=== PATIENT | female | born 1960 | race Caucasian/White ===

== ENCOUNTER 2016-11-13 14:49 | Emergency (ER) | payer OTHER ==
[~2016-11-13] VITALS: Ht 167.6 cm; Wt 107.5 kg
[~2016-11-13 14:49] MED LIST: ADVIN25/60 INH; ALBUAER19 INH; ASCO500T16 PO; CETI10TA99 PO; CHOL2000 PO; CITA10TA8 PO; FLUT0.0529 NAE; MULTTAB58 PO; RTL20 PO
[2016-11-13 14:55] VITALS: BP 160/112; PULSE 102; TEMP 36.8; O2SAT 95; Ht 167.6 cm; Wt 107.5 kg
[2016-11-13] MEDS ORDERED: MONT1TAB3 PO ×2 (15:18→20:55)
[2016-11-13] MEDS ORDERED: ADVIN25/60 INH (15:18)
--- NOTE | 2016-11-13 15:32 | EMERGENCY ROOM VISIT NOTE ---
History First contact with patient: 15:02 Chief Complaint: RESPIRATORY PROBLEMS Stated Complaint: BREATHING Nursing Triage Summary: Patient reports having difficulty breathing with cough "I coughed so hard I hurt m air, its my asthma its because my docotr couldnt fill my singulair and my advair". History of Present Illness The patient is a 55 year old female who presents to the Emergency Room requesting a refill of her prescription Singulair and Advair. The patient reports a history of asthma that has recently been flaring because of the change in weather. She reports that her PCP, Dr. Carlson, dismissed her from his practice. Until she can find another family doctor, she wants to "nip this in the bud before he gets worse". The patient denies any recent sinus congestion, productive cough or fever. She also denies any chest pain. Review of Systems 10 system review was performed and was negative except for pertinent positives and negatives as indicated in history of present illness Past Medical/Surgical History Medical Problems: (1) Asthma (2) Degenerative disc disease, cervical Social History Smoking Status: Former Smoker Alcohol Use: none Marital Status: Housing Status: lives with family Occupation Status: employed Current/Historical Medications Scheduled Ascorbic Acid (Ascorbic Acid), Unknown Dose PO DAILY Cetirizine Hcl (Zyrtec Allergy), 10 MG PO DAILY Cholecalciferol (Vitamin D3), 2,000 UNITS PO DAILY Citalopram Hydrobromide (Celexa), 10 MG PO DAILY Fluticasone Prop/Salmeterol (Advair Diskus 250/50 60 Dose), 1 PUFFS INH BID Fluticasone Propionate (Nasal) (Flonase), 1-2 SPRAYS [place] DAILY Methylphenidate (Ritalin), 20 MG PO BID Montelukast Sodium (Singulair), 10 MG PO DAILY Montelukast Sodium (Singulair), 1 TAB PO DAILY Multiple Vitamin (Multivitamin), 1 TAB PO DAILY [place]-3 Fatty Acids (Fish Oil), 1 CAPSULE PO DAILY Trazodone HCl (Trazodone HCl), 50 MG PO HS Scheduled PRN Albuterol Inhaler (Ventolin Inhaler), 1-2 PUFFS INH Q4-6HRS PRN for PRN Fluticasone Prop/Salmeterol (Advair Diskus 250/50 60 Dose), 1 PUFFS INH BID PRN for Shortness of Breath Allergies Coded Allergies: No Known Allergies (Unverified , 10/06/16) Physical Exam Vital Signs Date Time Temp Pulse Resp B/P Pulse Ox O2 Delivery O2 Flow Rate FiO2 11/13/16 14:55 36.8 102 18 160/112 95 Room Air Physical Exam CONSTITUTIONAL: Healthy and well nourished. Alert and oriented X 3 with positive affect. HEENT: Normocephalic, atraumatic. Pupils equal, round and reactive. NECK: Full active range of motion without discomfort. No JVD or carotid bruits. RESPIRATORY: Clear to auscultation bilaterally with no wheezing, crackles, rhonchi or stridor. CARDIOVASCULAR: Regular rate and rhythm with no murmurs, rubs or gallops. INTEGUMENTARY: No rash or other significant dermatologic conditions noted. NEUROLOGIC: No focal neurologic deficits noted. Medical Decision & Procedures ED Course Patient history and physical exam were performed. Nurse's notes were reviewed. Vital signs were reviewed and were normal. I did review the patient's medication history, showing that she has not had her Advair filled since last summer and her most recent Singulair prescription refill was in July. The patient was given a month's supply of Singulair 250 mg daily, and Advair 250 mg. She was encouraged to find a family doctor for further management, and return to the emergency department as needed for any worsening asthma symptoms or other concerns. The patient was happy with plan of care, and voiced understanding of all discharge instructions. Impression Primary Impression: Asthma Additional Impression: Prescription refill Departure Information Dispostion Home / Self-Care Prescriptions Montelukast Sodium (SINGULAIR) 10 Mg Tab 1 TAB PO DAILY for 30 Days, #30 TAB 5 Refills Prov: Philip Persaud PA 11/13/16 Fluticasone Prop/Salmeterol (Advair Diskus 250/50 60 Dose) 1 Ea Aerp 1 PUFFS INH BID for 30 Days, #1 INHALER 5 Refills Prov: Philip Persaud PA 11/13/16 Referrals No Doctor, Assigned (PCP) Forms HOME CARE DOCUMENTATION FORM, IMPORTANT VISIT INFORMATION Patient Instructions [facility] Additional Instructions Return to the emergency department for any worsening asthma symptoms Problem Qualifiers Primary Impression: Asthma Asthma severity: moderate persistent Asthma complication type: uncomplicated Qualified Codes: J45.40 - Moderate persistent asthma, uncomplicated
[2016-11-13] MEDS ORDERED: ASCO500C3 PO (15:44)
[2016-11-13] MEDS ORDERED: RTL10 PO (15:44)
[2016-11-13] MEDS ORDERED: METH20TA66 PO (15:44)
[2016-11-13] MEDS ORDERED: METH10TA4 PO (15:44)
[2016-11-13] MEDS ORDERED: Proair HFA INH (15:44)
[2016-11-13] MEDS ORDERED: DSY100 PO (20:55)
[2016-11-13] MEDS ORDERED: OMEGCAP2 PO (20:55)
== END 2016-11-13 15:40 | disposition home or self-care (01) ==
LOC: C.EDB 14:50 → C.EDC 15:40
DX: J45.40 Moderate persistent asthma, uncomplicated (principal); Z79.899 Other long term (current) drug therapy; Z87.891 Personal history of nicotine dependence

== ENCOUNTER 2017-04-04 16:52 | Emergency (ER) | payer OTHER ==
[~2017-04-04] VITALS: Ht 167.6 cm; Wt 109.0 kg
[~2017-04-04 16:52] MED LIST changes: -ALBUAER19 INH; +ASCO500C3 PO; -ASCO500T16 PO; -CETI10TA99 PO; +DSY100 PO; -FLUT0.0529 NAE; +METH10TA4 PO; +METH20TA66 PO; +MONT1TAB3 PO; +OMEGCAP2 PO; +Proair HFA INH; +RTL10 PO; -RTL20 PO
[2017-04-04 17:06] VITALS: BP 157/115; PULSE 108; TEMP 37.1; Ht 167.6 cm; Wt 109.0 kg
[2017-04-04 17:08] VITALS: O2SAT 96
== END 2017-04-04 17:48 | disposition left against medical advice (07) ==
LOC: C.EDB 16:53
DX: J45.909 Unspecified asthma, uncomplicated (principal); R06.9 Unspecified abnormalities of breathing

== ENCOUNTER 2020-10-22 11:22 | Inpatient (IN) ==
[2020-10-22] MEDS ORDERED: ALBUT/IPRATROP 3MG/0.5MG NEB 3 ML VIAL INH STA (12:12)
[2020-10-22] MEDS ORDERED: methylPREDNISolone 125 MG/2 ML VIAL IV STA (12:12)
[2020-10-22] MEDS ORDERED: ONDANSETRON INJ 2 MG/ML 2 ML VIAL IV STA (12:12)
[2020-10-22] MEDS ORDERED: SODIUM CHLORIDE 0.9% 1000ML 1,000 ML IV SCH (12:15)
--- NOTE | 2020-10-22 12:18 | Emergency Department Note ---
History of Present Illness General Chief complaint: Nausea Stated complaint: NAUSEA,DIARRHEA,SOB Time Seen by Provider: 10/22/20 11:58 Source: patient History of Present Illness Provider complaint: Shortness of breath Onset (ago): week(s) Location: chest Pain Consistency: + constant Maximum Pain Intensity: 7 Quality: + other (Shortness of breath and wheezing) Relieved By: + none Associated symptoms: + chest pain (Rib pain when she coughs), + cough, + malaise, + nausea/vomiting, + shortness of breath and + other (Body aches and diarrhea); no fever/chills This is a 59-year-old female who presents with shortness of breath for the past week. She does have a history of asthma. She states that she feels she needs fluids, nausea medicine and a nebulizer. She has been sick for about a week. She has had a cough which is nonproductive. She complains of diffuse body aches and diarrhea. She has had no loss of taste or smell, fever, chills or known e xposure to COVID-19. She works from home and does not go out except for essentials. She denies any chest pain other than soreness in her ribs when she coughs only. She has been nauseous all week and not been able to drink very much. She has not vomited. She states she feels dehydrated. He denies any history of DVT or PE or any hormone replacement or leg swelling or pain. She does smoke but states she is trying to quit. Home Medications Medication Instructions Recorded Confirmed Type albuterol sulfate [ProAir HFA] 2 puff INHALATION Q6H PRN 11/05/18 10/22/20 History ascorbic acid (vitamin C) [Vitamin 500 mg PO QAM 11/05/18 10/22/20 History C] cholecalciferol (vitamin D3) 2,000 unit PO QAM 11/05/18 10/22/20 History dexmethylphenidate [Focalin] 10 mg PO QID 11/05/18 10/22/20 History fluticasone propion-salmeterol 1 inh INHALATION Q12H 11/05/18 10/22/20 History [Advair Diskus] montelukast [Singulair] 10 mg PO PM 11/05/18 10/22/20 History multivitamin 1 tab PO QAM 11/05/18 10/22/20 History zolpidem 10 mg PO HS PRN 04/28/20 10/22/20 History alprazolam 0.5 mg PO TID PRN 10/22/20 10/22/20 History magnesium oxide 400 mg PO QAM 10/22/20 10/22/20 History omega-3 fatty acids [[place] 3] 1,000 mg PO DAILY 10/22/20 10/22/20 History pantoprazole [Protonix] 40 mg PO DAILY 10/22/20 10/22/20 History umeclidinium [Incruse Ellipta] 1 inh INHALATION QAM 10/22/20 10/22/20 History Allergies Allergy/AdvReac Type Severity Reaction Status Date / Time hydrocodone [From Vicodin] AdvReac Intermediate Gastrointestinal Verified 12:29 Upset ibuprofen AdvReac Intermediate Gastrointestinal Verified 10/22/20 12:29 Upset tramadol AdvReac Intermediate Gastrointestinal Verified 10/22/20 12:29 Upset Past Med/Surg History Medical History ADHD Anxiety Asthma Cervical radiculopathy due to degenerative joint disease ofspine HLD (hyperlipidemia) Morbid obesity Tobacco use Surgical History Hx of tonsillectomy Family History Other Cancer Heart disease Stroke Social History Smoking Status: Current every day smoker Tobacco Type: Cigarettes Cigarettes Per Day: 8 per day; Second Hand Exposure: No; Do You Dip or Chew Tobacco: No; Tobacco Cessation Education Requested by Patient: No Hx Alcohol Use: Yes Hx Substance Use: No Preferred Language: Turkish Communication Ability: Effective Bid Writer Required: No Beliefs That Will Affect Care: None Current Living Situation: Alone Current Living Situation Comment: with pet Other Information That Helps Us Care for You: No Feels Safe at Home: Yes Assistive Devices: Nebulizer Review of Systems See HPI for pertinent positives & negatives. and A total of 10 systems reviewed and were otherwise negative Physical Exam Vital Signs Vital Signs - 24 hr 10/22/20 11:23 10/22/20 12:38 10/22/20 12:43 Temperature 36.2 C L Temperature Source Temporal Artery Scan Pulse Rate 110 H Pulse Rate [Finger] 105 H Pulse Rate from SpO2 Sensor Respiratory Rate 20 18 Respiratory Effort / Characteristics Spontaneous Respiratory Depth Normal Blood Pressure 148/99 H Blood Pressure Mean 115 Pulse Oximetry 92 90 92 Oxygen Delivery Method Room Air Room Air Room Air Oxygen Flow Rate Sepsis Recent Fever Within 48 Hours No Sepsis New/Unexplained Change in Mental Status N/A Sepsis Action Taken by Nursing No Action Required Oxygen Flow Rate - Titration Pulse Oximetry Post Tiitration 10/22/20 12:45 10/22/20 13:00 10/22/20 13:31 Temperature Temperature Source Pulse Rate 103 H 100 H 102 H Pulse Rate [Finger] Pulse Rate from SpO2 Sensor 104 H 100 H 103 H Respiratory Rate 20 18 25 H Respiratory Effort / Characteristics Respiratory Depth Blood Pressure 136/92 139/82 125/88 Blood Pressure Mean 97 103 120 Pulse Oximetry 99 100 92 Oxygen Delivery Method Nebulizer Nebulizer Room Air Oxygen Flow Rate Sepsis Recent Fever Within 48 Hours Sepsis New/Unexplained Change in Mental Status Sepsis Action Taken by Nursing Oxygen Flow Rate - Titration Pulse Oximetry Post Tiitration 10/22/20 14:51 10/22/20 15:00 10/22/20 15:03 Temperature Temperature Source Pulse Rate 101 H 101 H Pulse Rate [Finger] Pulse Rate from SpO2 Sensor 101 H 101 H Respiratory Rate 24 3 L Respiratory Effort / Characteristics Respiratory Depth Blood Pressure 169/116 H Blood Pressure Mean 122 Pulse Oximetry 91 86 L 86 L Oxygen Delivery Method Room Air Nasal Cannula Room Air Oxygen Flow Rate 0 Sepsis Recent Fever Within 48 Hours Sepsis New/Unexplained Change in Mental Status Sepsis Action Taken by Nursing Oxygen Flow Rate - Titration 2 Pulse Oximetry Post Tiitration 91 10/22/20 15:14 10/22/20 15:30 Temperature Temperature Source Pulse Rate 102 H 100 H Pulse Rate [Finger] Pulse Rate from SpO2 Sensor 102 H 100 H Respiratory Rate 16 26 H Respiratory Effort / Characteristics Respiratory Depth Blood Pressure 120/89 135/79 Blood Pressure Mean 102 98 Pulse Oximetry 90 91 Oxygen Delivery Method Nasal Cannula Oxygen Flow Rate 2 Sepsis Recent Fever Within 48 Hours Sepsis New/Unexplained Change in Mental Status Sepsis Action Taken by Nursing Oxygen Flow Rate - Titration Pulse Oximetry Post Tiitration Constitutional: Vital signs reviewed. Eyes: Pupils are equal round reactive to light. Conjunctiva are noninjected. ENT: Pharynx is clear without erythema or exudate. Mucous membranes are very dry. Neck supple without meningeal signs. Respiratory: Diminished air entry bilaterally. Breath sounds are equal bilaterally. Cardiovascular: Tachycardic. Heart rate 110. Regular rhythm. GI: Soft, nondistended and nontender. Bowel sounds are present. Musculoskeletal: No peripheral edema. No lower extremity tenderness. Integumentary: No cyanosis. or jaundice. Neurological: The patient is awake and alert. No focal deficits. Psychiatric: Slightly anxious appearing. Course Administered Medications Remdesivir 200 mg/ Sodium (Chloride) 250 mls @ 125 mls/hr IV ONE STA; Protocol Stop: 10/22/20 17:34 Last Admin: 10/22/20 17:23 Dose: 125 mls/hr Documented by: [id number] Sodium Chloride (Sodium Chloride 0.9% 10ml Flush) 30 ml IV Q24H SPIKE Stop: 10/26/20 12:01 Last Admin: 10/22/20 17:24 Dose: 30 ml Documented by: [id number] Discontinued Medications Albuterol (Albut/Ipratrop 3mg/0.5mg Neb 3 Ml Vial) 12 ml INH ONE STA Stop: 10/22/20 12:13 Last Admin: 10/22/20 12:36 Dose: 12 ml Documented by: [id number] Sodium Chloride (Nss 1000ml) 1,000 mls @ 999 mls/hr IV .Q1H1M SPIKE Stop: 10/22/20 13:15 Last Infusion: 10/22/20 13:40 Dose: 0 mls/hr Documented by: [id number] Admin: 10/22/20 12:54 Dose: 999 mls/hr Documented by: [id number] Ioversol (Optiray 320 125ml) 120 ml IV ONCE ONE Stop: 10/22/20 13:53 Last Admin: 10/22/20 13:53 Dose: 120 ml Documented by: [id number] Methylprednisolone (Methylprednisolone 125 Mg/2 Ml Vial) 125 mg IV NOW STA Stop: 10/22/20 12:13 Last Admin: 10/22/20 12:53 Dose: 125 mg Documented by: [id number] Ondansetron HCl (Ondansetron Inj 2 Mg/Ml 2 Ml Vial) 4 mg IV NOW STA Stop: 10/22/20 12:13 Last Admin: 10/22/20 12:53 Dose: 4 mg Documented by: [id number] Medical Decision Making Differential Diagnosis Asthma exacerbation, COVID-19, pneumonia, influenza, PE Medical Records Attestation: I reviewed the patient's medical records. I did perform a limited focused review of portions of the patient's old chart on the electronic medical record. The patient was seen here for an asthma exacerbation in the summer of last year. Home Medications Current Medication List: was personally reviewed by me Laboratory Data Attestation: I reviewed the patient's lab results. Result diagrams: 10/22/20 12:55 10/22/20 12:55 Lab Results 10/22/20 10/22/20 10/22/20 Range/Units 12:55 12:55 12:55 WBC 5.89 (4.8-10.8) K/uL RBC 5.37 (4.2-5.4) M/uL Hgb 15.6 (12.0-16.0) g/dL Hct 46.4 (37-47) % MCV 86.4 (80-100) fL MCH 29.1 (25-34) pg MCHC 33.6 (32-36) g/dL RDW Std Deviation 45.3 (36.4-46.3) fL RDW Coeff of [place] 14.4 (11.5-14.5) % Plt Count 201 (130-400) K/uL MPV 9.4 (7.4-10.4) fL Immature Gran % (Auto) 0.5 % Neut % (Auto) 65.5 % Lymph % (Auto) 25.3 % [place] % (Auto) 8.5 % Eos % (Auto) 0.0 % Baso % (Auto) 0.2 % Neut # (Auto) 3.86 (1.4-6.5) K/uL Lymph # (Auto) 1.49 (1.2-3.4) K/uL [place] # (Auto) 0.50 (0.11-0.59) K/uL Eos # (Auto) 0.00 (0-0.5) K/uL Baso # (Auto) 0.01 (0-0.2) K/uL Immature Gran # (Auto) 0.03 H (0.00-0.02) K/uL PT 10.8 (9.0-12.0) Seconds INR 1.0 (0.9-1.1) APTT 31.5 H (21.0-31.0) Seconds PTT Ratio 1.1 D-Dimer 1740 H* (0-500) ug/L FEU Sodium 132 L (136-145) mmol/L Potassium 4.0 (3.5-5.1) mmol/L Chloride 101 (98-107) mmol/L Carbon Dioxide 26 (21-32) mmol/L Anion Gap 5.0 (3-11) BUN 11 (7-18) mg/dl Creatinine 0.77 (0.6-1.2) mg/dl Est Cr Clr Drug Dosing 101.0 ml/min Est GFR ( Amer) 98.0 Est GFR (Non-Af Amer) 84.5 BUN/Creatinine Ratio 14.8 (10-20) Glucose 112 H (70-99) mg/dl Calcium 8.1 L (8.5-10.1) mg/dl Magnesium 2.3 (1.8-2.4) mg/dl Total Bilirubin 0.7 (0.2-1) mg/dl AST 95 H (15-37) U/L ALT 82 H (12-78) U/L Alkaline Phosphatase 107 (45-117) U/L Troponin I 0.064 H* (0-0.045) ng/ml C-Reactive Protein 4.03 H (0-0.29) mg/dl Total Protein 7.1 (6.4-8.2) gm/dl Albumin 2.9 L (3.4-5.0) gm/dl Globulin 4.2 H (2.5-4.0) gm/dl Albumin/Globulin Ratio 0.7 L (0.9-2) Procalcitonin (0-0.5) ng/ml COVID-19 Eval Order SARS-CoV-2 (PCR) (Negative) Nasopharyn COVID-19 PCR Influenza Type A (PCR) Influ A Molecular Assay (Negative) Influenza Type B (PCR) Influ B Molecular Assay (Negative) RSV (RT-PCR) (Neg) 10/22/20 10/22/20 10/22/20 Range/Units 12:55 12:55 12:55 WBC (4.8-10.8) K/uL RBC (4.2-5.4) M/uL Hgb (12.0-16.0) g/dL Hct (37-47) % MCV (80-100) fL MCH (25-34) pg MCHC (32-36) g/dL RDW Std Deviation (36.4-46.3) fL RDW Coeff of [place] (11.5-14.5) % Plt Count (130-400) K/uL MPV (7.4-10.4) fL Immature Gran % (Auto) % Neut % (Auto) % Lymph % (Auto) % [place] % (Auto) % Eos % (Auto) % Baso % (Auto) % Neut # (Auto) (1.4-6.5) K/uL Lymph # (Auto) (1.2-3.4) K/uL [place] # (Auto) (0.11-0.59) K/uL Eos # (Auto) (0-0.5) K/uL Baso # (Auto) (0-0.2) K/uL Immature Gran # (Auto) (0.00-0.02) K/uL PT (9.0-12.0) Seconds INR (0.9-1.1) APTT (21.0-31.0) Seconds PTT Ratio D-Dimer (0-500) ug/L FEU Sodium (136-145) mmol/L Potassium (3.5-5.1) mmol/L Chloride (98-107) mmol/L Carbon Dioxide (21-32) mmol/L Anion Gap (3-11) BUN (7-18) mg/dl Creatinine (0.6-1.2) mg/dl Est Cr Clr Drug Dosing ml/min Est GFR ( Amer) Est GFR (Non-Af Amer) BUN/Creatinine Ratio (10-20) Glucose (70-99) mg/dl Calcium (8.5-10.1) mg/dl Magnesium (1.8-2.4) mg/dl Total Bilirubin (0.2-1) mg/dl AST (15-37) U/L ALT (12-78) U/L Alkaline Phosphatase (45-117) U/L Troponin I (0-0.045) ng/ml C-Reactive Protein (0-0.29) mg/dl Total Protein (6.4-8.2) gm/dl Albumin (3.4-5.0) gm/dl Globulin (2.5-4.0) gm/dl Albumin/Globulin Ratio (0.9-2) Procalcitonin (0-0.5) ng/ml COVID-19 Eval Order [facility]Rsv at [facility] SARS-CoV-2 (PCR) (Negative) Nasopharyn COVID-19 PCR Cancelled Influenza Type A (PCR) Cancelled Influ A Molecular Assay Negative (Negative) Influenza Type B (PCR) Cancelled Influ B Molecular Assay Negative (Negative) RSV (RT-PCR) (Neg) 10/22/20 10/22/20 Range/Units 12:55 12:56 WBC (4.8-10.8) K/uL RBC (4.2-5.4) M/uL Hgb (12.0-16.0) g/dL Hct (37-47) % MCV (80-100) fL MCH (25-34) pg MCHC (32-36) g/dL RDW Std Deviation (36.4-46.3) fL RDW Coeff of [place] (11.5-14.5) % Plt Count (130-400) K/uL MPV (7.4-10.4) fL Immature Gran % (Auto) % Neut % (Auto) % Lymph % (Auto) % [place] % (Auto) % Eos % (Auto) % Baso % (Auto) % Neut # (Auto) (1.4-6.5) K/uL Lymph # (Auto) (1.2-3.4) K/uL [place] # (Auto) (0.11-0.59) K/uL Eos # (Auto) (0-0.5) K/uL Baso # (Auto) (0-0.2) K/uL Immature Gran # (Auto) (0.00-0.02) K/uL PT (9.0-12.0) Seconds INR (0.9-1.1) APTT (21.0-31.0) Seconds PTT Ratio D-Dimer (0-500) ug/L FEU Sodium (136-145) mmol/L Potassium (3.5-5.1) mmol/L Chloride (98-107) mmol/L Carbon Dioxide (21-32) mmol/L Anion Gap (3-11) BUN (7-18) mg/dl Creatinine (0.6-1.2) mg/dl Est Cr Clr Drug Dosing ml/min Est GFR ( Amer) Est GFR (Non-Af Amer) BUN/Creatinine Ratio (10-20) Glucose (70-99) mg/dl Calcium (8.5-10.1) mg/dl Magnesium (1.8-2.4) mg/dl Total Bilirubin (0.2-1) mg/dl AST (15-37) U/L ALT (12-78) U/L Alkaline Phosphatase (45-117) U/L Troponin I (0-0.045) ng/ml C-Reactive Protein (0-0.29) mg/dl Total Protein (6.4-8.2) gm/dl Albumin (3.4-5.0) gm/dl Globulin (2.5-4.0) gm/dl Albumin/Globulin Ratio (0.9-2) Procalcitonin 0.08 (0-0.5) ng/ml COVID-19 Eval Order SARS-CoV-2 (PCR) POSITIVE A* (Negative) Nasopharyn COVID-19 PCR Influenza Type A (PCR) Negative Influ A Molecular Assay (Negative) Influenza Type B (PCR) Negative Influ B Molecular Assay (Negative) RSV (RT-PCR) Negative (Neg) Imaging Data Radiologist's Impression: XR chest 1V portable CLINICAL HISTORY: Dyspnea COMPARISON STUDY: 12/30/2018 FINDINGS: The heart is normal in size. There are suspected subtle groundglass opacities within the left midlung zone. Evaluation is difficult due to the patient's large body habitus. Diagnostic considerations include radiographic artifact, asymmetric edema, or pneumonia. There are no large pleural effusions.[ IMPRESSION: 1. Somewhat difficult study to interpret due to the patient's large body habitus 2. Suspected subtle groundglass opacities in the left midlung zone. Diagnostic considerations include radiographic artifact, asymmetric edema, or pneumonia. Clinical and radiographic follow-up recommended ACT 112: Negative or not required by law. Electronically signed by: Sam Ac M.D. 10/22/2020 1:03 PM Dictated: 10/22/20 1301 Transcribed: 10/22/[address] ANGIOGRAM OF THE CHEST CLINICAL HISTORY: Shortness of breath. Possible pulmonary embolism. POSSIBLE ABNORMAL CHEST X-RAY. COMPARISON STUDY: Chest x-ray dated 10/22/2020 TECHNIQUE: Following the IV administration of 120 mL of Optiray-320, CT ang iogram of the thorax was performed from the thoracic inlet to the lung bases utilizing the pulmonary embolus protocol. Images are reviewed in the axial, sagittal, and coronal planes. IV contrast was administered without complication. MIP imaging was performed. A dose lowering technique was utilized adhering to the principles of ALARA. CT DOSE: 849.73 mGy.cm FINDINGS: There is hepatic steatosis. There is a rim calcified 24 mm cystic splenic lesion. There is mild hilar and mediastinal lymphadenopathy likely reactive. The ascending thoracic aorta measures 36 mm. There are coronary artery c alcifications. There were no pulmonary artery filling defects to indicate acute pulmonary embolism. There is trace pleural fluid There are multifocal groundglass pulmonary opacities suspicious for a multifocal pneumonia. The findings are consistent with although not specific for Covid 19 pneumonia. IMPRESSION: 1. No evidence of acute pulmonary embolism 2. Multifocal groundglass pulmonary opacities consistent with a multifocal pneumonia. 3. Hepatic steatosis. 4. Mild adenopathy likely reactive ACT 112: Negative or not required by law. Electronically signed by: Sam Ac M.D. 10/22/2020 2:43 PM Dictated: 10/22/20 1440 Transcribed: 10/22/20 1440 ECG Data Attestation: I personally reviewed and interpreted this ECG as follows: Indication: + SOB/dyspnea Rate (beats per minute): 103 Rhythm: + sinus tachycardia ECG [place]: + Normal ECG ST segments: no ST elevation ECG Findings: no PVCs MDM Narrative I did evaluate the patient as noted above. The patient is an asthmatic who is presenting with shortness of breath and body aches with diarrhea. I was concerned about COVID-19. She is placed in respiratory isolation. I did treat her with an hour-long nebulizer. IV access was established. She was given Solu-Medrol IV. I did place an order for continuous cardiac monitoring. The monitor showed sinus tachycardia at a rate of 102 bpm. I did order and personally review the patient's 12-lead EKG as described above. She is tachycardic without any acute ischemia. I did order and personally reviewed the images of the patient's chest x-ray as described above. X-ray is concerning for groundglass opacities. I did order and review the patient's blood work as noted in the electronic medical record. CBC is unremarkable without any leukocytosis or anemia. Electrolytes demonstrate a mild hyponatremia with a sodium of 132. D-dimer significant elevated troponin is also slightly elevated. LFTs are bumped as well. After discussion with the patient, I did order a CT angiogram of the chest. I did review the images myself as well as the radiology report as described above. She does not have pulmonary emboli but she does have multifocal pneumonia consistent with COVID-19. Her COVID-19 test came back positive. Influenza tests are negative. I did discuss the test results with her. She will be hospitalized for further care and evaluation. I did discuss case with the hospitalist and assistant case manager. Impression & Plan Pneumonia due to 2019-nCoV, Elevated troponin, Acute asthma exacerbation, Abnormal LFTs Discharge Plan Visit Data Chief Complaint: Nausea Stated Complaint: NAUSEA,DIARRHEA,SOB ED Provider: Wade Millard Discharge Problem: Pneumonia due to 2019-nCoV, Elevated troponin, Acute asthma exacerbation, Abnormal LFTs Patient Disposition: Admitted As Inpatient Discharge Instructions Interventions: ED Discharge Assessment Last Done: 10/22/20 16:10
--- NOTE | 2020-10-22 13:04 | XRay Report ---
XR chest 1V portable CLINICAL HISTORY: Dyspnea COMPARISON STUDY: 12/30/2018 FINDINGS: The heart is normal in size. There are suspected subtle groundglass opacities within the le ft midlung zone. Evaluation is difficult due to the patient's large body habitus. Diagnostic consider ations include radiographic artifact, asymmetric edema, or pneumonia. There are no large pleural effu sions.[ IMPRESSION: 1. Somewhat difficult study to interpret due to the patient's large body habitus 2. Suspected subtle groundglass opacities in the left midlung zone. Diagnostic considerations include radiographic artifact, asymmetric edema, or pneumonia. Clinical and radiographic follow-up recommend ed ACT 112: Negative or not required by law. Electronically signed by: Sam Ac M.D. 10/22/2020 1:03 PM
[2020-10-22 13:08] LABS: Basophils # (auto) 0.01 K/uL (0-0.2); Basophils % (auto) 0.2 %; Hematocrit (blood only) 46.4 % (37-47); Hemoglobin 15.6 g/dL (12.0-16.0); Immature Granulocytes # (auto) 0.03 K/uL (0.00-0.02); Immature Granulocytes % (auto) 0.5 %; Lymphocytes # (auto) 1.49 K/uL (1.2-3.4); Lymphocytes % (auto) 25.3 %; Mean Corpuscular Hemoglobin 29.1 pg (25-34); Mean Corpuscular Hgb Conc 33.6 g/dL (32-36); Mean Corpuscular Volume 86.4 fL (80-100); Mean Platelet Volume 9.4 fL (7.4-10.4); Monocytes % (auto) 8.5 %; Neutrophils # (auto) 3.86 K/uL (1.4-6.5); Neutrophils % (auto) 65.5 %; Platelet Count 201 K/uL (130-400); RDW Coefficient of Variation 14.4 % (11.5-14.5); RDW Standard Deviation 45.3 fL (36.4-46.3); Red Blood Count 5.37 M/uL (4.2-5.4); White Blood Count 5.89 K/uL (4.8-10.8)
[2020-10-22 13:25] LABS: Albumin Level 2.9 gm/dl (3.4-5.0); BUN Creatinine Ratio 14.8 (10-20); Calcium 8.1 mg/dl (8.5-10.1); Est GFR (Non-African American) 84.5; Magnesium 2.3 mg/dl (1.8-2.4)
[2020-10-22 13:31] LABS: Partial Thromboplastin Ratio 1.1; Partial Thromboplastin Time 31.5 Seconds (21.0-31.0); Prothrombin Time 10.8 Seconds (9.0-12.0)
[2020-10-22 13:32] LABS: Albumin Globulin Ratio 0.7 (0.9-2); Bilirubin,Total 0.7 mg/dl (0.2-1); C Reactive Protein 4.03 mg/dl (0-0.29); Globulin 4.2 gm/dl (2.5-4.0); Total Protein 7.1 gm/dl (6.4-8.2); Troponin I 0.064 ng/ml (0-0.045)
[2020-10-22 13:34] LABS: D Dimer 1740 ug/L FEU (0-500)
[2020-10-22 13:39] LABS: Influenza A virus by PCR Negative (Negative); Influenza B virus by PCR Negative (Negative)
[2020-10-22] MEDS ORDERED: OPTIRAY 320 125ml IV ONE (13:52)
[2020-10-22 14:30] LABS: Influenza A virus by PCR Negative (Neg); Influenza B virus by PCR Negative (Neg); RSV by PCR Negative (Neg)
[2020-10-22 14:38] LABS: SARS CoV2 RNA(COVID-19) InHosp POSITIVE (Negative)
--- NOTE | 2020-10-22 14:44 | CT Scan Report ---
CT ANGIOGRAM OF THE CHEST CLINICAL HISTORY: Shortness of breath. Possible pulmonary embolism. POSSIBLE ABNORMAL CHEST X-RAY. COMPARISON STUDY: Chest x-ray dated 10/22/2020 TECHNIQUE: Following the IV administration of 120 mL of Optiray-320, CT angiogram of the thorax was p erformed from the thoracic inlet to the lung bases utilizing the pulmonary embolus protocol. Images a re reviewed in the axial, sagittal, and coronal planes. IV contrast was administered without complica tion. MIP imaging was performed. A dose lowering technique was utilized adhering to the principles o f ALARA. CT DOSE: 849.73 mGy.cm FINDINGS: There is hepatic steatosis. There is a rim calcified 24 mm cystic splenic lesion. There is mild hilar and mediastinal lymphadenopathy likely reactive. The ascending thoracic aorta measures 36 mm. There are coronary artery calcifications. There were no pulmonary artery filling defects to indicate acute pulmonary embolism. There is trace pleural fluid There are multifocal groundglass pulmonary opacities suspicious for a multifocal pneumonia. The findi ngs are consistent with although not specific for Covid 19 pneumonia. IMPRESSION: 1. No evidence of acute pulmonary embolism 2. Multifocal groundglass pulmonary opacities consistent with a multifocal pneumonia. 3. Hepatic steatosis. 4. Mild adenopathy likely reactive ACT 112: Negative or not required by law. Electronically signed by: Sam Ac M.D. 10/22/2020 2:43 PM
[2020-10-22] MEDS ORDERED: REMDESIVIR 200 MG in SODIUM CHLORIDE 0.9% 210 ML IV STA (15:35)
--- NOTE | 2020-10-22 15:39 | History & Physical Report ---
Date of Service October 22, 2020 Assessment & Plan (1) Hypoxia: (2) Pneumonia due to COVID-19 virus: (3) Asthma: (4) Elevated troponin: (5) Tobacco use: (6) HLD (hyperlipidemia): (7) Anxiety: (8) ADHD: This is a 59-year-old female with PMH of asthma and HLD who presents with shortness of breath over the past few days and was found to have covid pneumonia. Covid pneumonia Hypoxia -Short of breath for the past 2 days with productive cough and pleuritic chest pain -Covid + on cepheid test. Negative flu A/B and RSV -Hypoxic at 86% in ED on room air. Now saturating at 90% on 2L NC -Chest CTA with multifocal ground glass pulmonary opacities consistent with a multifocal pneumonia. No evidence of acute pulmonary embolism -Covid isolation precautions, IV dexamethasone, IV Remdesivir (monitoring renal fxn and LFTs), albuterol inh Troponin elevation Mildly elevated at 0.064. EKG with sinus tachycardia @ 103 bpm. No acute ischemic changes. Atypical pleuritic CP with coughing Monitor on telemetry, trend troponin, will not pursue 2D echo while covid +. A1c and fasting lipid panel in AM Asthma Continue home albuterol, Advair, Incruse Ellipta, Singulair Tobacco use Counselled on importance of smoking cessation. Will offer nicotine patch ADHD Continue home Focalin QID DVT Ppx: SQ Lovenox Code status: FULL PCP: Katlyn Dispo: [facility] Plan to return home once medically stable. Patient seen in collaboration with Dr. Ann. Please see addendum. History of Present Illness Chief Complaint: Shortness of breath, pleuritic chest pain Primary Care Provider: Kip Potts MD This is a 59-year-old female with PMH of asthma and HLD who presents with shortness of breath over the past few days. Started to feel poorly about a week ago with headache and body aches, followed by nausea and diarrhea. Has been short of breath for the past 2 days with productive cough and pain in ribs when coughing. Denies any known Covid contacts. Takes inhalers as scheduled for history of asthma. Denies any fever, chills, lightheadedness, visual changes, chest pain, palpitations, vomiting, abdominal pain, dysuria or constipation. Has had poor appetite for the past few days. In ED, patient afebrile and hemodynamically stable. Became hypoxic in the high 80s and is now saturating at 90% on 2 L nasal cannula. Chest CTA with multifocal groundglass pulmonary opacities consistent with a multifocal pneumonia. No evidence of acute pulmonary embolism. Troponin mildly elevated at 0.064. EKG with sinus tachycardia @ 103 bpm. Allergies Allergy/AdvReac Type Severity Reaction Status Date / Time hydrocodone [From Vicodin] AdvReac Intermediate Gastrointestinal Verified 10/22/20 12:29 Upset ibuprofen AdvReac Intermediate Gastrointestinal Verified 10/22/20 12:29 Upset tramadol AdvReac Intermediate Gastrointestinal Verified 10/22/20 12:29 Upset Home Medications Medication Instructions Recorded Confirmed Type albuterol sulfate [ProAir HFA] 2 puff INHALATION Q6H PRN 11/05/18 10/22/20 History ascorbic acid (vitamin C) [Vitamin 500 mg PO QAM 11/05/18 10/22/20 History C] cholecalciferol (vitamin D3) 2,000 unit PO QAM 11/05/18 10/22/20 History dexmethylphenidate [Focalin] 10 mg PO QID 11/05/18 10/22/20 History fluticasone propion-salmeterol 1 inh INHALATION Q12H 11/05/18 10/22/20 History [Advair Diskus] montelukast [Singulair] 10 mg PO PM 11/05/18 10/22/20 History multivitamin 1 tab PO QAM 11/05/18 10/22/20 History zolpidem 10 mg PO HS PRN 04/28/20 10/22/20 History alprazolam 0.5 mg PO TID PRN 10/22/20 10/22/20 History magnesium oxide 400 mg PO QAM 10/22/20 10/22/20 History omega-3 fatty acids [Holder 3] 1,000 mg PO DAILY 10/22/20 10/22/20 History pantoprazole [Protonix] 40 mg PO DAILY 10/22/20 10/22/20 History umeclidinium [Incruse Ellipta] 1 inh INHALATION QAM 10/22/20 10/22/20 History Past Med/Surg History Medical History ADHD Anxiety Asthma Cervical radiculopathy due to degenerative joint disease ofspine HLD (hyperlipidemia) Morbid obesity Tobacco use Surgical History Hx of tonsillectomy Family History Other Cancer Heart disease Stroke Social History Smoking Status: Current every day smoker Tobacco Type: Cigarettes Cigarettes Per Day: 8 per day; Second Hand Exposure: No; Do You Dip or Chew Tobacco: No; Tobacco Cessation Education Requested by Patient: No Hx Alcohol Use: Yes Hx Substance Use: No Preferred Language: Luxembourgish Communication Ability: Effective Cell Efficiency Supervisor Required: No Beliefs That Will Affect Care: None Current Living Situation: Alone Current Living Situation Comment: with pet Other Information That Helps Us Care for You: No Feels Safe at Home: Yes Assistive Devices: Nebulizer Review of Systems Review of Systems: At least ten systems reviewed and negative except as noted in the HPI. Physical Exam Physical Exam: Please see Dr. Ann's addendum for physical exam. Constitutional: WD/WN, vitals as above + ill appearing and + obese Eyes: PERRL, conjunctivae normal, anicteric sclerae ENMT: external ear and nose normal, oropharynx normal Neck: trachea midline, no thyromegaly Respiratory: Auscultation: + diminished lung sounds, + crackles and + rales Cardiovascular: RRR, no murmur, no edema Gastrointestinal (Abdomen): normal bowel sounds, soft, nontender, no hepatosplenomegaly Musculoskeletal: no cyanosis or clubbing, extremities motor strength 5/5 Skin: no rashes, warm and dry Neurologic: PERRL, EOMI, accommodation nl, no face palsy, no dysarthria Psychiatric: A+Ox3, euthymic affect Results & Data Results & Data ([facility]) Vital Signs (Past 12 Hours) Vital Signs Temp Pulse Pulse Resp BP Pulse Ox 10/22/20 15:14 102 H 16 120/89 90 10/22/20 15:03 101 H 3 L 86 L 10/22/20 15:00 86 L 10/22/20 14:51 101 H 24 169/116 H 91 10/22/20 13:31 102 H 25 H 125/88 92 10/22/20 13:00 100 H 18 139/82 100 10/22/20 12:45 103 H 20 136/92 99 10/22/20 12:43 105 H 18 92 10/22/20 12:38 90 10/22/20 11:23 36.2 C L 110 H 20 148/99 H 92 Laboratory Results Short CBC 10/22/20 10/22/20 10/22/20 Range/Units 12:55 12:55 12:55 WBC 5.89 (4.8-10.8) K/uL RBC 5.37 (4.2-5.4) M/uL Hgb 15.6 (12.0-16.0) g/dL Hct 46.4 (37-47) % MCV 86.4 (80-100) fL MCH 29.1 (25-34) pg MCHC 33.6 (32-36) g/dL RDW Std Deviation 45.3 (36.4-46.3) fL RDW Coeff of Catalina 14.4 (11.5-14.5) % Plt Count 201 (130-400) K/uL MPV 9.4 (7.4-10.4) fL Immature Gran % (Auto) 0.5 % Neut % (Auto) 65.5 % Lymph % (Auto) 25.3 % Patrick % (Auto) 8.5 % Eos % (Auto) 0.0 % Baso % (Auto) 0.2 % Neut # (Auto) 3.86 (1.4-6.5) K/uL Lymph # (Auto) 1.49 (1.2-3.4) K/uL Patrick # (Auto) 0.50 (0.11-0.59) K/uL Eos # (Auto) 0.00 (0-0.5) K/uL Baso # (Auto) 0.01 (0-0.2) K/uL Immature Gran # (Auto) 0.03 H (0.00-0.02) K/uL PT 10.8 (9.0-12.0) Seconds INR 1.0 (0.9-1.1) APTT 31.5 H (21.0-31.0) Seconds PTT Ratio 1.1 D-Dimer 1740 H* (0-500) ug/L FEU Sodium 132 L (136-145) mmol/L Potassium 4.0 (3.5-5.1) mmol/L Chloride 101 (98-107) mmol/L Carbon Dioxide 26 (21-32) mmol/L Anion Gap 5.0 (3-11) BUN 11 (7-18) mg/dl Creatinine 0.77 (0.6-1.2) mg/dl Est Cr Clr Drug Dosing 101.0 ml/min Est GFR ( Amer) 98.0 Est GFR (Non-Af Amer) 84.5 BUN/Creatinine Ratio 14.8 (10-20) Glucose 112 H (70-99) mg/dl Calcium 8.1 L (8.5-10.1) mg/dl Magnesium 2.3 (1.8-2.4) mg/dl Total Bilirubin 0.7 (0.2-1) mg/dl AST 95 H (15-37) U/L ALT 82 H (12-78) U/L Alkaline Phosphatase 107 (45-117) U/L Troponin I 0.064 H* (0-0.045) ng/ml C-Reactive Protein 4.03 H (0-0.29) mg/dl Total Protein 7.1 (6.4-8.2) gm/dl Albumin 2.9 L (3.4-5.0) gm/dl Globulin 4.2 H (2.5-4.0) gm/dl Albumin/Globulin Ratio 0.7 L (0.9-2) COVID-19 Eval Order SARS-CoV-2 (PCR) (Negative) Nasopharyn COVID-19 PCR Influenza Type A (PCR) Influ A Molecular Assay (Negative) Influenza Type B (PCR) Influ B Molecular Assay (Negative) RSV (RT-PCR) (Neg) 10/22/20 10/22/20 10/22/20 Range/Units 12:55 12:55 12:55 WBC (4.8-10.8) K/uL RBC (4.2-5.4) M/uL Hgb (12.0-16.0) g/dL Hct (37-47) % MCV (80-100) fL MCH (25-34) pg MCHC (32-36) g/dL RDW Std Deviation (36.4-46.3) fL RDW Coeff of Catalina (11.5-14.5) % Plt Count (130-400) K/uL MPV (7.4-10.4) fL Immature Gran % (Auto) % Neut % (Auto) % Lymph % (Auto) % Patrick % (Auto) % Eos % (Auto) % Baso % (Auto) % Neut # (Auto) (1.4-6.5) K/uL Lymph # (Auto) (1.2-3.4) K/uL Patrick # (Auto) (0.11-0.59) K/uL Eos # (Auto) (0-0.5) K/uL Baso # (Auto) (0-0.2) K/uL Immature Gran # (Auto) (0.00-0.02) K/uL PT (9.0-12.0) Seconds INR (0.9-1.1) APTT (21.0-31.0) Seconds PTT Ratio D-Dimer (0-500) ug/L FEU Sodium (136-145) mmol/L Potassium (3.5-5.1) mmol/L Chloride (98-107) mmol/L Carbon Dioxide (21-32) mmol/L Anion Gap (3-11) BUN (7-18) mg/dl Creatinine (0.6-1.2) mg/dl Est Cr Clr Drug Dosing ml/min Est GFR ( Amer) Est GFR (Non-Af Amer) BUN/Creatinine Ratio (10-20) Glucose (70-99) mg/dl Calcium (8.5-10.1) mg/dl Magnesium (1.8-2.4) mg/dl Total Bilirubin (0.2-1) mg/dl AST (15-37) U/L ALT (12-78) U/L Alkaline Phosphatase (45-117) U/L Troponin I (0-0.045) ng/ml C-Reactive Protein (0-0.29) mg/dl Total Protein (6.4-8.2) gm/dl Albumin (3.4-5.0) gm/dl Globulin (2.5-4.0) gm/dl Albumin/Globulin Ratio (0.9-2) COVID-19 Eval Order CovFluRsv at [facility] SARS-CoV-2 (PCR) (Negative) Nasopharyn COVID-19 PCR Cancelled Influenza Type A (PCR) Cancelled Influ A Molecular Assay Negative (Negative) Influenza Type B (PCR) Cancelled Influ B Molecular Assay Negative (Negative) RSV (RT-PCR) (Neg) 10/22/20 Range/Units 12:55 WBC (4.8-10.8) K/uL RBC (4.2-5.4) M/uL Hgb (12.0-16.0) g/dL Hct (37-47) % MCV (80-100) fL MCH (25-34) pg MCHC (32-36) g/dL RDW Std Deviation (36.4-46.3) fL RDW Coeff of Catalina (11.5-14.5) % Plt Count (130-400) K/uL MPV (7.4-10.4) fL Immature Gran % (Auto) % Neut % (Auto) % Lymph % (Auto) % Patrick % (Auto) % Eos % (Auto) % Baso % (Auto) % Neut # (Auto) (1.4-6.5) K/uL Lymph # (Auto) (1.2-3.4) K/uL Patrick # (Auto) (0.11-0.59) K/uL Eos # (Auto) (0-0.5) K/uL Baso # (Auto) (0-0.2) K/uL Immature Gran # (Auto) (0.00-0.02) K/uL PT (9.0-12.0) Seconds INR (0.9-1.1) APTT (21.0-31.0) Seconds PTT Ratio D-Dimer (0-500) ug/L FEU Sodium (136-145) mmol/L Potassium (3.5-5.1) mmol/L Chloride (98-107) mmol/L Carbon Dioxide (21-32) mmol/L Anion Gap (3-11) BUN (7-18) mg/dl Creatinine (0.6-1.2) mg/dl Est Cr Clr Drug Dosing ml/min Est GFR ( Amer) Est GFR (Non-Af Amer) BUN/Creatinine Ratio (10-20) Glucose (70-99) mg/dl Calcium (8.5-10.1) mg/dl Magnesium (1.8-2.4) mg/dl Total Bilirubin (0.2-1) mg/dl AST (15-37) U/L ALT (12-78) U/L Alkaline Phosphatase (45-117) U/L Troponin I (0-0.045) ng/ml C-Reactive Protein (0-0.29) mg/dl Total Protein (6.4-8.2) gm/dl Albumin (3.4-5.0) gm/dl Globulin (2.5-4.0) gm/dl Albumin/Globulin Ratio (0.9-2) COVID-19 Eval Order SARS-CoV-2 (PCR) POSITIVE A* (Negative) Nasopharyn COVID-19 PCR Influenza Type A (PCR) Negative Influ A Molecular Assay (Negative) Influenza Type B (PCR) Negative Influ B Molecular Assay (Negative) RSV (RT-PCR) Negative (Neg) BMP 10/22/20 12:55 Sodium 132 L Potassium 4.0 Chloride 101 Carbon Dioxide 26 BUN 11 Creatinine 0.77 Glucose 112 H Calcium 8.1 L Cardiac Enzymes 10/22/20 Range/Units 12:55 Troponin I 0.064 H* (0-0.045) ng/ml Liver Function 10/22/20 Range/Units 12:55 Total Bilirubin 0.7 (0.2-1) mg/dl AST 95 H (15-37) U/L ALT 82 H (12-78) U/L Alkaline Phosphatase 107 (45-117) U/L Albumin 2.9 L (3.4-5.0) gm/dl Diagnostic Findings CXR: IMPRESSION: 1. Somewhat difficult study to interpret due to the patient's large body habitus 2. Suspected subtle groundglass opacities in the left midlung zone. Diagnostic considerations include radiographic artifact, asymmetric edema, or pneumonia. Clinical and radiographic follow-up recommended Chest CTA: IMPRESSION: 1. No evidence of acute pulmonary embolism 2. Multifocal groundglass pulmonary opacities consistent with a multifocal pneumonia. 3. Hepatic steatosis. 4. Mild adenopathy likely reactive ECG Rhythm: sinus tachycardia Code Status & VTE Plan VTE Prophylaxis Plan VTE Prophylaxis will be ordered: Yes Supervising Physician Co-Signing Physician Notes Attending addendum : pt seen and examined , care co-ordianted with Gaby CHÁVEZ 59 yo F admitted with ac hypoxemic resp failure due to COVID 19 pneumonia admitted to tele started on IV dexamethasone , IV remdesivir empiric abx for possible underlying bacterial pneumonia cont supportive care Full code please refer to further documentation by Macie Mckenzie PA-C for discussion of other chronic issues Honey Ann MD
--- NOTE | 2020-10-22 17:04 | Electrocardiogram Report ---
Test Reason : Blood Pressure : / mmHG Vent. Rate : 103 BPM Atrial Rate : 103 BPM P-R Int : 150 ms QRS Dur : 082 ms QT Int : 334 ms P-R-T Axes : 033 032 091 degrees QTc Int : 437 ms Sinus tachycardia Otherwise normal ECG When compared with ECG of 28-APR-2020 21:11, No significant change was found Confirmed by Jeffrey Goldman ([id number]) on 10/22/2020 5:04:03 PM Referred By: Confirmed By:Jacinto Goldman
[2020-10-22] MEDS ORDERED: ACETAMINOPHEN 325 MG TAB PO PRN (17:22)
[2020-10-22] MEDS ORDERED: POLYETHYLENE (MIRALAX) 17 GM PACK PO PRN (17:22)
[2020-10-22] MEDS: SODIUM CHLORIDE 0.9% 10ML FLUSH IV SCH (17:24)
[2020-10-22] MEDS ORDERED: ALBUTEROL HFA 8 GM INHALER INH PRN (17:45)
[2020-10-22] MEDS ORDERED: cefTRIAXone SODIUM 2,000 MG in DEXTROSE 5% 50 ML IV SCH (18:00)
[2020-10-22] MEDS ORDERED: AZITHROMYCIN 500 MG in DEXTROSE 5% 250 ML IV SCH (18:00)
[2020-10-22] MEDS: FLUTICASONE/VILANTEROL 200/25MCG 14 PUFFS/INHALER INH SCH (18:33)
[2020-10-22] MEDS: ENOXAPARIN INJ 60 MG/0.6 ML SYR SQ SCH (19:57)
[2020-10-22] MEDS: DEXMETHYLPHENIDATE PO SCH (19:57)
[2020-10-22] MEDS: PATIENT'S OWN CONTROLLED MED PO SCH (19:58)
[2020-10-22] MEDS: MONTELUKAST SODIUM 10 MG TABLET PO SCH (19:58)
[2020-10-22] MEDS: ZOLPIDEM TARTRATE 10 MG TAB PO PRN (22:06)
[2020-10-23 06:16] LABS: Hematocrit (blood only) 47.6 % (37-47); Hemoglobin 15.5 g/dL (12.0-16.0); Mean Corpuscular Hemoglobin 28.8 pg (25-34); Mean Corpuscular Hgb Conc 32.6 g/dL (32-36); Mean Corpuscular Volume 88.3 fL (80-100); Mean Platelet Volume 9.3 fL (7.4-10.4); Platelet Count 243 K/uL (130-400); RDW Coefficient of Variation 14.7 % (11.5-14.5); RDW Standard Deviation 47.2 fL (36.4-46.3); Red Blood Count 5.39 M/uL (4.2-5.4); White Blood Count 5.26 K/uL (4.8-10.8)
[2020-10-23] MEDS: ENOXAPARIN INJ 60 MG/0.6 ML SYR SQ SCH ×2 (06:20→17:48)
[2020-10-23 06:34] LABS: Estimated Average Glucose 137 mg/dl; Hemoglobin A1C 6.4 % (4.5-5.6)
[2020-10-23 07:03] LABS: Albumin Globulin Ratio 0.7 (0.9-2); Albumin Level 2.9 gm/dl (3.4-5.0); Bilirubin,Total 0.4 mg/dl (0.2-1); Calcium 8.6 mg/dl (8.5-10.1); Creatinine Clr Calc Pharmacy 89.1 ml/min; Est GFR (African American) 84.5; Est GFR (Non-African American) 72.9; Globulin 4.2 gm/dl (2.5-4.0); Total Protein 7.1 gm/dl (6.4-8.2)
[2020-10-23] MEDS: MULTIVITAMIN TAB PO SCH (07:27)
[2020-10-23] MEDS: OMEGA-3 (PURIFIED FISH OIL) 1 GM CAP PO SCH (07:27)
[2020-10-23] MEDS: ASCORBIC ACID 500 MG TAB PO SCH (07:27)
[2020-10-23] MEDS: MAGNESIUM OXIDE 400 MG TAB PO SCH (07:27)
[2020-10-23] MEDS: UMECLIDINIUM BROMIDE 62.5MCG/BLISTER 7 PUFFS/INHALER INH SCH (07:27)
[2020-10-23] MEDS: CHOLECALCIFEROL 1,000 UNITS 25 MCG TAB PO SCH (07:27)
[2020-10-23] MEDS: PANTOprazole 40 MG TAB PO SCH (07:27)
[2020-10-23] MEDS: ASPIRIN 81 MG ECTAB PO SCH (07:27)
[2020-10-23] MEDS: FLUTICASONE/VILANTEROL 200/25MCG 14 PUFFS/INHALER INH SCH (07:28)
[2020-10-23] MEDS: dexAMETHasone 6 MG in SYRINGE 0 ML IV SCH (07:30)
[2020-10-23] MEDS: PATIENT'S OWN CONTROLLED MED PO SCH ×2 (07:31→14:04)
[2020-10-23] MEDS: DEXMETHYLPHENIDATE PO SCH ×2 (07:37→14:04)
[2020-10-23] MEDS: SODIUM CHLORIDE 0.9% 10ML FLUSH IV SCH (12:27)
[2020-10-23] MEDS: REMDESIVIR 100 MG in SODIUM CHLORIDE 0.9% 230 ML IV SCH (12:27)
--- NOTE | 2020-10-23 13:50 | Communication Note ---
Date of Service: October 23, 2020 mild elevation of troponin : possible demand ischemic in setting of acute hypoxemic resp failure due to COVID 19 pneumonia : troponin 0.06-0.06-0.05 with no angina symptoms no further cardiac work up needed very low suspicion for ACS no arrhythmia on tele /out pt resting ECHO in 6-8 weeks after complete recovery from COVID -19 infection Admitted with acute hypoxemic resp failure /COVID 19 pneumonia : CT chest with contrast : no PE multifocal ground glass pulmonary opacities consistent with a multifocal pneumon ia . pt was hypoxic 86% in RA spo2 93% on 4 L 02 via nasal canula ( was not on home 02 ) on IV remdesivir , Dexamethasone per COVID 19 protocol low suspicion for superimposed bacterial/community acquired pneumonia Rocephin /IV Zithromax D/mei PO Doxycycline for 5-7 days for possible bronchitis pt is stable to be transferred to Medical floor Honey Ann MD
[2020-10-23 14:42] LABS: Appearance Urine Clear (Clear); Bacteria Urine Automated Negative (Negative); Bilirubin Urine Negative (Negative); Blood Urine Negative (Negative); Color Urine Dark Yellow; Epithelial Cell Urine Auto 20-30 /lpf (0-5); Glucose Urine UA 2+ (Negative); Ketones Urine Negative (Negative); Leukocyte Esterase Urine Negative (Negative); Nitrite Urine Negative (Negative); Protein Urine 1+ (Negative); RBC Urine Automated 0-4 /hpf (0-4); Specific Gravity Urine 1.033 (1.000-1.030); Urobilinogen Urine Negative (Negative)
[2020-10-23] MEDS: ALPRAZolam 0.5 MG TABLET PO PRN (17:43)
[2020-10-23] MEDS: MONTELUKAST SODIUM 10 MG TABLET PO SCH (21:16)
--- NOTE | 2020-10-23 21:48 | Hospitalist Progress Note ---
Date of Service October 23, 2020 Assessment & Plan (1) Hypoxia: COVID-19 pneumonia: Continue supportive care, (2) Pneumonia due to COVID-19 virus: (3) Asthma: (4) Elevated troponin: (5) Tobacco use: (6) HLD (hyperlipidemia): (7) Anxiety: To have severe anxiety/panic attack, worsening of symptoms secondary to hypoxia/acute illness. Continue Xanax every 8 hours as needed, counseling provided to patient Continue to monitor (8) ADHD: This is a 59-year-old female with PMH of asthma and HLD who presents with shortness of breath over the past few days and was found to have covid pneumonia. Covid pneumonia Hypoxia -Short of breath for the past 2 days with productive cough and pleuritic chest pain -Covid + on cepheid test. Negative flu A/B and RSV -Hypoxic at 86% in ED on room air. Now saturating at 90% on 2L NC -Chest CTA with multifocal ground glass pulmonary opacities consistent with a multifocal pneumonia. No evidence of acute pulmonary embolism -Covid isolation precautions, IV dexamethasone, IV Remdesivir (monitoring renal fxn and LFTs), albuterol inh Asthma Continue home albuterol, Advair, Incruse Ellipta, Singulair Tobacco use Counselled on importance of smoking cessation. Will offer nicotine patch ADHD Continue home Focalin QID DVT Ppx: SQ Lovenox Code status: FULL PCP: Dr Potts Disposition: Expected to be discharged home when medically stable Admission and Anticipated Discharge Date Admission Date: October 22, 2020 Subjective Follow-up visit for acute hypoxemic respiratory failure/COVID-19 pneumonia pt remains very anxious , having intermittent panic attack concerned about COVID 19 pneumonia worried that she might need senior living 02 supplement no fever chills, cough has improved, no orthopnea no dyspnea on exertion no chest pain or palpitation Review of Systems Review of Systems: All systems reviewed & are unremarkable except as noted in HPI & below Physical Exam Constitutional: WD/WN, vitals as above + ill appearing and + obese Eyes: PERRL, conjunctivae normal, anicteric sclerae ENMT: external ear and nose normal, oropharynx normal Neck: trachea midline, no thyromegaly Respiratory: Auscultation: + diminished lung sounds Cardiovascular: RRR, no murmur, no edema Gastrointestinal (Abdomen): normal bowel sounds, soft, nontender, no hepatosplenomegaly Musculoskeletal: no cyanosis or clubbing, extremities motor strength 5/5 Skin: no rashes, warm and dry Neurologic: PERRL, EOMI, accommodation nl, no face palsy, no dysarthria Psychiatric: A+Ox3, euthymic affect Results & Data Results & Data ([facility]) Vital Signs (Past 12 Hours) Vital Signs Temp Pulse Resp BP Pulse Ox 10/23/20 16:00 94 10/23/20 15:04 36.6 C 93 H 18 140/99 95 10/23/20 12:00 36.9 C 85 20 141/78 H 94
[2020-10-24] MEDS: ENOXAPARIN INJ 60 MG/0.6 ML SYR SQ SCH ×2 (05:29→19:43)
[2020-10-24] MEDS ORDERED: COUGH DROP (SUGAR FREE) LOZ 24 LOZ/1 BOX BUCCAL ONE (06:38)
[2020-10-24] MEDS: OMEGA-3 (PURIFIED FISH OIL) 1 GM CAP PO SCH (08:44)
[2020-10-24] MEDS: UMECLIDINIUM BROMIDE 62.5MCG/BLISTER 7 PUFFS/INHALER INH SCH (08:44)
[2020-10-24] MEDS: MAGNESIUM OXIDE 400 MG TAB PO SCH (08:44)
[2020-10-24] MEDS: FLUTICASONE/VILANTEROL 200/25MCG 14 PUFFS/INHALER INH SCH (08:44)
[2020-10-24] MEDS: ASPIRIN 81 MG ECTAB PO SCH (08:44)
[2020-10-24] MEDS: ASCORBIC ACID 500 MG TAB PO SCH (08:44)
[2020-10-24] MEDS: CHOLECALCIFEROL 1,000 UNITS 25 MCG TAB PO SCH (08:44)
[2020-10-24] MEDS: dexAMETHasone 6 MG in SYRINGE 0 ML IV SCH (08:44)
[2020-10-24] MEDS: MULTIVITAMIN TAB PO SCH (08:44)
[2020-10-24] MEDS: PANTOprazole 40 MG TAB PO SCH (08:44)
--- NOTE | 2020-10-24 11:08 | Electrocardiogram Report ---
Test Reason : Blood Pressure : / mmHG Vent. Rate : 095 BPM Atrial Rate : 095 BPM P-R Int : 166 ms QRS Dur : 084 ms QT Int : 356 ms P-R-T Axes : 000 -52 215 degrees QTc Int : 447 ms Poor data quality, interpretation may be adversely affected I believe this represents R arm/L leg lead reversal Normal sinus rhythm Abnormal ECG When compared with ECG of 22-OCT-2020 12:38, No significant change assumiong lead reversal Confirmed by Doc Alcantara ([id number]) on 10/24/2020 11:08:35 AM Referred By: REFERRED SELF Confirmed By:Doc Alcantara
[2020-10-24] MEDS: REMDESIVIR 100 MG in SODIUM CHLORIDE 0.9% 230 ML IV SCH (11:21)
[2020-10-24] MEDS: SODIUM CHLORIDE 0.9% 10ML FLUSH IV SCH (11:21)
[2020-10-24] MEDS: ALPRAZolam 0.5 MG TABLET PO PRN (15:38)
--- NOTE | 2020-10-24 19:52 | Hospitalist Progress Note ---
Date of Service October 24, 2020 Assessment & Plan (1) Hypoxia: COVID-19 pneumonia: Continue supportive care, (2) Pneumonia due to COVID-19 virus: (3) Asthma: (4) Elevated troponin: (5) Tobacco use: (6) HLD (hyperlipidemia): (7) Anxiety: To have severe anxiety/panic attack, worsening of symptoms secondary to hypoxia/acute illness. pt is not on any SSRI , prn Xanax 0.5 mg TID pt hyperventilating /having crying spell thinking that she will soon due to COVID 19 infection nursing and myself -counselled her that clinically she is getting better able to walk around in room , no fever may need longer acting BDZ for panic attatcks psych consult requested for severe anxiety disorder (8) ADHD: This is a 59-year-old female with PMH of asthma and HLD who presents with shortness of breath over the past few days and was found to have covid pneumonia. Covid pneumonia Hypoxia -Short of breath for the past 2 days with productive cough and pleuritic chest pain -Covid + on cepheid test. Negative flu A/B and RSV -Hypoxic at 86% in ED on room air. Now saturating at 90% on 2L NC -Chest CTA with multifocal ground glass pulmonary opacities consistent with a multifocal pneumonia. No evidence of acute pulmonary embolism -Covid isolation precautions, IV dexamethasone, IV Remdesivir (monitoring renal fxn and LFTs), albuterol inh Asthma Continue home albuterol, Advair, Incruse Ellipta, Singulair Tobacco use Counselled on importance of smoking cessation. Will offer nicotine patch ADHD Continue home Focalin QID DVT Ppx: SQ Lovenox Code status: FULL PCP: Dr Potts Disposition: Expected to be discharged home when medically stable will need 2 step exercise to assess home02 prior to discharge Admission and Anticipated Discharge Date Admission Date: October 22, 2020 Subjective Follow-up visit for acute hypoxemic respiratory failure/COVID-19 pneumonia remains extremely anxious having panic attack , PRN Xanax helps no fever or chills sob and cough improved eager to be discharged home as being in hospital making her anxiety disorder worse Physical Exam Constitutional: WD/WN, vitals as above + ill appearing and + obese Eyes: PERRL, conjunctivae normal, anicteric sclerae ENMT: external ear and nose normal, oropharynx normal Neck: trachea midline, no thyromegaly Respiratory: Auscultation: + diminished lung sounds Cardiovascular: RRR, no murmur, no edema Gastrointestinal (Abdomen): normal bowel sounds, soft, nontender, no hepatosplenomegaly Musculoskeletal: no cyanosis or clubbing, extremities motor strength 5/5 Skin: no rashes, warm and dry Neurologic: PERRL, EOMI, accommodation nl, no face palsy, no dysarthria Psychiatric: A+Ox3, euthymic affect Results & Data Results & Data ([facility]) Vital Signs (Past 12 Hours) Vital Signs Temp Pulse Resp BP Pulse Ox 10/24/20 15:31 37.0 C 85 18 155/99 H 93
[2020-10-24] MEDS: MONTELUKAST SODIUM 10 MG TABLET PO SCH (21:54)
[2020-10-24] MEDS: ZOLPIDEM TARTRATE 10 MG TAB PO PRN (23:58)
[2020-10-25] MEDS: ENOXAPARIN INJ 60 MG/0.6 ML SYR SQ SCH (05:50)
[2020-10-25] MEDS: FLUTICASONE/VILANTEROL 200/25MCG 14 PUFFS/INHALER INH SCH (08:41)
[2020-10-25] MEDS: UMECLIDINIUM BROMIDE 62.5MCG/BLISTER 7 PUFFS/INHALER INH SCH (08:41)
[2020-10-25] MEDS: MULTIVITAMIN TAB PO SCH (08:42)
[2020-10-25] MEDS: MAGNESIUM OXIDE 400 MG TAB PO SCH (08:42)
[2020-10-25] MEDS: ASPIRIN 81 MG ECTAB PO SCH (08:42)
[2020-10-25] MEDS: OMEGA-3 (PURIFIED FISH OIL) 1 GM CAP PO SCH (08:42)
[2020-10-25] MEDS: PANTOprazole 40 MG TAB PO SCH (08:42)
[2020-10-25] MEDS: CHOLECALCIFEROL 1,000 UNITS 25 MCG TAB PO SCH (08:42)
[2020-10-25] MEDS: ASCORBIC ACID 500 MG TAB PO SCH (08:42)
--- NOTE | 2020-10-25 09:14 | Psychiatric Consultation ---
Date of Consultation October 25, 2020 Impression / Recommendations Impression Dr. Anu Palma was directly involved in review and discussion of the patient's case and participated in medical decision making regarding treatment recommendations. RECOMMENDATIONS: 10/25 - Psychiatric consultation requested by our hospitalist service to evaluate patient for severe anxiety and panic attacks. Pt has a reported history of anxiety, but symptoms are likely exacerbated by situational anxiety as well as difficulty breathing and other factors related to her medical treatment (nebulizer treatments, steroids, smoking history, and breathing concerns at baseline). - PDMP query conducted due to patient being prescribed numerous controlled psychotropic medications (Xanax, Focalin, and Ambien). Pt has been filling these medications consistently from [facility] providers. Would encourage close monitoring for appropriate use, given multiple prescriptions for controlled medications. - Pt is declining any interventions from our service at this time. Suggestions reviewed with the patient are as follows: - Switching to a longer acting benzodiazepine options (0.5mg clonazepam up to TID prn) to offer more consistent control of anxiety. Long-term suggestion would be for graduation taper to discontinuation - likely exploring SSRI/SNRI options for management of mood and anxiety. - Pt is also taking twice the daily maximum recommended dosage of her stimulant medication Focalin - which could certainly be contributing to her anxiety concerns. Would not advise dispensing the medication during her hospital stay, and would not recommend discharge dosing beyond the maximum recommended daily dose of 20mg. - As patient is declining our involvement and is not interested in considering any medication adjustments at this time, ongoing care can be coordinated with her outpatient psychiatrist. - Appreciate opportunity to participate in the care of this patient. Please reach out to our service with any additional questions or updates. Psych History Identifying Data 59-year-old female admitted medically on 10/22/2020 after presenting to the ED with shortness of breath and chest pain. Pt was found to be positive for COVID and developed pneumonia. Psychiatric consultation was requested by our hospitalist service to evaluate patient for anxiety and panic attacks. Chief Complaint "Um, I had COVID but I'm feeling much better now. I feel ready to go home right now." History of Present Illness Minerva Lombardo is a 59-year-old female admitted medically on 10/22/2020 after presenting to the ED with reports of shortness of breath and chest pain. Pt was found to be COVID positive with evidence of pneumonia and was admitted for further treatment and observation. Pt has a PMH of asthma, tobacco use, HLD, obesity, and DJD and documentation to suggest anxiety and ADHD. Psychiatric consultation was requested by our hospitalist service to evaluate the patient for severe anxiety and panic attacks. Due to patient's COVID positive status, phone interview was conducted. Both patient and provider were located at [facility] at time of encounter. Pt verbalized agreement with use of telephone service and two unique identifiers were used to confirm identity. Pt was polite with conversation, but did sound anxious and seemed to peterson through questioning. When asked what led to her hospitalization, the patient stated "I had COVID but I'm feeling much better now. I feel ready to go home right now." Pt admits that she is "going stir crazy" and is hoping to be cleared to go home as soon as possible. This provider did acknowledge that the patient sounded very anxious and attempted to spend some time processing stressors or even to conduct some mindfulness techniques to reduce anxiety level. Pt did not seem interested in this, but instead frequently reiterated "I just want to go home right now." The patient denied any concerns related to her anxiety or depressive symptoms prior to her admission and states "I'll be fine when I go home, I just need to go home with home health." The patient admits that her last communication with her outpatient psychiatrist was 10/04/2020 and she has not had any medication changes in quite some time. The patient states "because I haven't needed any. Everything's fine." Pt believes she has been diagnosed with "depression, just the depression. Oh, and the ADD. Really bad ADD. I teach, so I need the Focalin." The patient denied any significant mood concerns. She denied changes in sleep or appetite that she feels are related to her mood. She also denies hopelessness, helplessness, or SI. The patient was offered some suggestions regarding medications and was counseled on concerns for respiratory depression with use of benzodiazepine. She was also informed of recommendation to switch to a longer-acting benzodiazepine but declined stating "I've been on others before. Xanax works the best for me." Pt did seem to politely peterson this provider off the phone, stating "you've been so helpful I appreciate your assistance, but I have so much work to do. Corinna." Pt did decline any further involvement from our service, but was encouraged to reach out with any additional questions or concerns. Past Psychiatric History Current Psychiatric Diagnosis: "depression, just the depression. And ADD." Outpatient Services: Psychiatrist - Dr. Villavicencio - [facility] Allergies Allergy/AdvReac Type Severity Reaction Status Date / Time hydrocodone [From Vicodin] AdvReac Intermediate Gastrointestinal Verified 10/22/20 12:29 Upset ibuprofen AdvReac Intermediate Gastrointestinal Verified 10/22/20 12:29 Upset tramadol AdvReac Intermediate Gastrointestinal Verified 10/22/20 12:29 Upset Home Medications Medication Instructions Recorded Confirmed Type albuterol sulfate [ProAir HFA] 2 puff INHALATION Q6H PRN 11/05/18 10/22/20 History ascorbic acid (vitamin C) [Vitamin 500 mg PO QAM 11/05/18 10/22/20 History C] cholecalciferol (vitamin D3) 2,000 unit PO QAM 11/05/18 10/22/20 History dexmethylphenidate [Focalin] 10 mg PO QID 11/05/18 10/22/20 History fluticasone propion-salmeterol 1 inh INHALATION Q12H 11/05/18 10/22/20 History [Advair Diskus] montelukast [Singulair] 10 mg PO PM 11/05/18 10/22/20 History multivitamin 1 tab PO QAM 11/05/18 10/22/20 History zolpidem 10 mg PO HS PRN 04/28/20 10/22/20 History alprazolam 0.5 mg PO TID PRN 10/22/20 10/22/20 History magnesium oxide 400 mg PO QAM 10/22/20 10/22/20 History omega-3 fatty acids [[place] 3] 1,000 mg PO DAILY 10/22/20 10/22/20 History pantoprazole [Protonix] 40 mg PO DAILY 10/22/20 10/22/20 History umeclidinium [Incruse Ellipta] 1 inh INHALATION QAM 10/22/20 10/22/20 History Substance Abuse History History obtained from H&P - pt admitted to occasional alcohol use and smoking 8 cigarettes daily. UDS not obtained on admission. 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 Patient History Medical History ADHD Anxiety Asthma Cervical radiculopathy due to degenerative joint disease ofspine HLD (hyperlipidemia) Morbid obesity Tobacco use Surgical History Hx of tonsillectomy Family History Other Cancer Heart disease Stroke Social History Smoking Status: Current every day smoker Tobacco Type: Cigarettes Cigarettes Per Day: 8 per day; Second Hand Exposure: No; Do You Dip or Chew Tobacco: No; Tobacco Cessation Education Requested by Patient: No Hx Alcohol Use: Yes Hx Substance Use: No Preferred Language: Bulgarian Communication Ability: Effective [employer]or Services Team Leader Required: No Beliefs That Will Affect Care: None Current Living Situation: Alone Current Living Situation Comment: with pet Other Information That Helps Us Care for You: No Feels Safe at Home: Yes Assistive Devices: Oxygen - Continuous Physical Exam Psychiatric: Orientation: alert, oriented x 3 and + guarded (only superficially cooperative) Speech: normal rate/rhythm/volume of speech (though only offering brief, hurried responses to questions) Mood: + depressed mood and + anxious mood but reports feeling this will resolve once she is able to return home. Thought Process: goal directed thought process and clear/coherent thought process Thought Content: reality based without delusions; no hopelessness and no worthlessness Suicidal Thoughts: denies suicidal thoughts and denies suicidal intent Homicidal Thoughts: denies homicidal thoughts Hallucinations: no auditory hallucinations and no visual hallucinations Cognition: attention grossly intact and language grossly intact Estimated Intelligence: consistent with education level Insight: + fair insight Judgement: + fair judgement Vital Signs (Past 24 Hours): Last Vital Signs Temp 36.8 C 10/25/20 07:00 Pulse 88 10/25/20 07:00 Resp 19 10/25/20 07:00 BP 136/89 10/25/20 07:00 Pulse Ox 97 10/25/20 07:00 Exam Statement: Visual aspects of exam could not be performed due to telephone call - COVID-19 pandemic emergency and patient COVID-19 positive. Review of Systems Constitutional: admits to feeling restless, "stir crazy" Cardiovascular: denied Respiratory: reports improvement with shortness of breath Gastrointestinal: denied Neurological: denied Psychiatric: denies symptoms other than stated above Total of at least 10 systems reviewed, pertinent positives as above and in HPI. Results & Data (PSY) Medications Administered Acetaminophen (Acetaminophen 325 Mg Tab) 650 mg PO Q4H PRN PRN Reason: Pain or Fever Stop: 11/21/20 17:21 Last Admin: 10/23/20 15:25 Dose: 650 mg Documented by: [id number] Alprazolam (Alprazolam 0.5 Mg Tablet) 0.5 mg PO TID PRN PRN Reason: Anxiety Stop: 11/21/20 17:21 Last Admin: 10/24/20 15:38 Dose: 0.5 mg Documented by: [id number] Admin: 10/23/20 17:43 Dose: 0.5 mg Documented by: [id number] Ascorbic Acid (Ascorbic Acid 500 Mg Tab) 500 mg PO [facility] Stop: 11/22/20 08:59 Last Admin: 10/25/20 08:42 Dose: 500 mg Documented by: [id number] Admin: 10/24/20 08:44 Dose: 500 mg Documented by: [id number] Admin: 10/23/20 07:27 Dose: 500 mg Documented by: [id number] Aspirin (Aspirin 81 Mg Ectab) 81 mg PO [facility] Stop: 11/22/20 08:59 Last Admin: 10/25/20 08:42 Dose: 81 mg Documented by: [id number] Admin: 10/24/20 08:44 Dose: 81 mg Documented by: [id number] Admin: 10/23/20 07:27 Dose: 81 mg Documented by: [id number] Enoxaparin Sodium (Enoxaparin Inj 60 Mg/0.6 Ml Syr) 60 mg SQ Q12H [facility]; Protocol Stop: 11/21/20 17:59 Last Admin: 10/25/20 05:50 Dose: 60 mg Documented by: [id number] Admin: 10/24/20 19:43 Dose: 60 mg Documented by: [id number] Admin: 10/24/20 05:29 Dose: 60 mg Documented by: [id number] Admin: 10/23/20 17:48 Dose: 60 mg Documented by: [id number] Admin: 10/23/20 06:20 Dose: 60 mg Documented by: [id number] Admin: 10/22/20 19:57 Dose: 60 mg Documented by: [id number] Fish Oil ([place]-3 (Purified Fish Oil) 1 Gm Cap) 1 gm PO DAILY SPIKE Stop: 11/22/20 08:59 Last Admin: 10/25/20 08:42 Dose: 1 gm Documented by: [id number] Admin: 10/24/20 08:44 Dose: 1 gm Documented by: [id number] Admin: 10/23/20 07:27 Dose: 1 gm Documented by: [id number] Fluticasone/Vilanterol (Fluticasone/Vilanterol 200/25mcg 14 Puffs/Inhaler) 1 puffs INH DAILY SPIKE; Protocol Stop: 11/21/20 17:59 Last Admin: 10/25/20 08:41 Dose: 1 puffs Documented by: [id number] Admin: 10/24/20 08:44 Dose: 1 puffs Documented by: [id number] Admin: 10/23/20 07:28 Dose: 1 puffs Documented by: [id number] Admin: 10/22/20 18:33 Dose: 1 puffs Documented by: [id number] Remdesivir 100 mg/ Sodium (Chloride) 250 mls @ 250 mls/hr IV Q24H SPIKE; Protocol Stop: 10/26/20 12:59 Last Infusion: 10/24/20 12:21 Dose: 0 mls/hr Documented by: [id number] Admin: 10/24/20 11:21 Dose: 250 mls/hr Documented by: [id number] Infusion: 10/23/20 13:53 Dose: 0 mls/hr Documented by: [id number] Admin: 10/23/20 12:27 Dose: 250 mls/hr Documented by: [id number] Magnesium Oxide (Magnesium Oxide 400 Mg Tab) 400 mg PO QAM SPIKE Stop: 11/22/20 08:59 Last Admin: 10/25/20 08:42 Dose: 400 mg Documented by: [id number] Admin: 10/24/20 08:44 Dose: 400 mg Documented by: [id number] Admin: 10/23/20 07:27 Dose: 400 mg Documented by: [id number] Miscellaneous (Focalin - Order Awaiting Action) 1 ea N/A QS SPIKE Stop: 11/22/20 15:59 Last Admin: 10/25/20 07:20 Dose: Not Given Documented by: [id number] Admin: 10/24/20 23:55 Dose: Not Given Documented by: [id number] Admin: 10/24/20 15:34 Dose: Not Given Documented by: [id number] Admin: 10/24/20 07:12 Dose: Not Given Documented by: [id number] Admin: 10/24/20 00:30 Dose: Not Given Documented by: [id number] Admin: 10/23/20 15:53 Dose: Not Given Documented by: [id number] Montelukast Sodium (Montelukast Sodium 10 Mg Tablet) 10 mg PO PM SPIKE Stop: 11/21/20 20:59 Last Admin: 10/24/20 21:54 Dose: Not Given Documented by: [id number] Admin: 10/23/20 21:16 Dose: Not Given Documented by: [id number] Admin: 10/22/20 19:58 Dose: 10 mg Documented by: [id number] Multivitamins (Multivitamin Tab) 1 tab PO QAM SPIKE Stop: 11/22/20 08:59 Last Admin: 10/25/20 08:42 Dose: 1 tab Documented by: [id number] Admin: 10/24/20 08:44 Dose: 1 tab Documented by: [id number] Admin: 10/23/20 07:27 Dose: 1 tab Documented by: [id number] Pantoprazole Sodium (Pantoprazole 40 Mg Tab) 40 mg PO DAILY SPIKE Stop: 11/22/20 08:59 Last Admin: 10/25/20 08:42 Dose: 40 mg Documented by: [id number] Admin: 10/24/20 08:44 Dose: 40 mg Documented by: [id number] Admin: 10/23/20 07:27 Dose: 40 mg Documented by: [id number] Sodium Chloride (Sodium Chloride 0.9% 10ml Flush) 30 ml IV Q24H SPIKE Stop: 10/26/20 12:01 Last Admin: 10/24/20 11:21 Dose: 30 ml Documented by: [id number] Admin: 10/23/20 12:27 Dose: 30 ml Documented by: [id number] Admin: 10/22/20 17:24 Dose: 30 ml Documented by: [id number] Umeclidinium [place] (Umeclidinium [place] 62.5mcg/Blister 7 Puffs/Inhaler) 1 puffs INH QAM SPIKE Stop: 11/22/20 08:59 Last Admin: 10/25/20 08:41 Dose: 1 puffs Documented by: [id number] Admin: 10/24/20 08:44 Dose: 1 puffs Documented by: [id number] Admin: 10/23/20 07:27 Dose: 1 puffs Documented by: [id number] Vitamin D (Cholecalciferol 1,000 Units 25 Mcg Tab) 2,000 units PO QAM [facility] Stop: 11/22/20 08:59 Last Admin: 10/25/20 08:42 Dose: 2,000 units Documented by: [id number] Admin: 10/24/20 08:44 Dose: 2,000 units Documented by: [id number] Admin: 10/23/20 07:27 Dose: 2,000 units Documented by: [id number] Zolpidem Tartrate (Zolpidem Tartrate 10 Mg Tab) 10 mg PO HS PRN PRN Reason: Sleep Stop: 11/21/20 17:21 Last Admin: 10/24/20 23:58 Dose: 10 mg Documented by: [id number] Admin: 10/22/20 22:06 Dose: 10 mg Documented by: [id number] Coding Level of Care Code 81801 [facility] Intl Hosp Care Lvl 1 Comment Telehealth visit - due to COVID-19 emergency, patient COVID positive
[2020-10-25 11:07] LABS: D Dimer 760 ug/L FEU (0-500)
[2020-10-25] MEDS: REMDESIVIR 100 MG in SODIUM CHLORIDE 0.9% 230 ML IV SCH (11:18)
[2020-10-25] MEDS: SODIUM CHLORIDE 0.9% 10ML FLUSH IV SCH (13:04)
--- NOTE | 2020-10-25 13:32 | Hospitalist Progress Note ---
Date of Service October 25, 2020 Assessment & Plan (1) Hypoxia: COVID-19 pneumonia: Continue supportive care, (2) Pneumonia due to COVID-19 virus: (3) Asthma: (4) Elevated troponin: (5) Tobacco use: (6) HLD (hyperlipidemia): (7) Anxiety: Severe anxiety/panic attack, worsening of symptoms secondary to hypoxia/acute illness. pt is not on any SSRI , prn Xanax 0.5 mg TID Appreciate psychiatry input Currently patient not interested in any medication changes ADHD medication likely contributing to anxiety as well Advised to follow-up with her psychiatrist as outpatient (8) ADHD: Continue home medications for now Patient currently refusing to any medication changes Covid pneumonia Hypoxia Received remdesivir, dexamethasone for 4 days Weaned off of oxygen 2 step: Did not qualify for oxygen Asthma Continue home albuterol, Advair, Incruse Ellipta, Singulair Tobacco use Insurance Claims Representative to quit smoking DVT Px: SQ Lovenox Code status: FULL PCP: Dr Potts Admission and Anticipated Discharge Date Admission Date: October 22, 2020 Subjective Patient is seen and examined at bedside States feeling much improved Eager to get discharged Refuses any management for anxiety 2 step; did not qualify for oxygen Minimal cough Denies dyspnea, chest pain, dizziness, nausea, abdominal pain Offers no other complaints Review of Systems Review of Systems: All systems reviewed & are unremarkable except as noted in HPI & below Physical Exam Physical Exam: Physical Exam: Vitals signs as noted above General Appearance:Morbidly Obese, anxious, no apparent distress Head: normocephalic, Atraumatic Eyes: normal inspection, EOMI Neck: supple, Trachea midline Respiratory/Chest: Decreased breath sounds, CTA, No accessory muscle use Cardiovascular: S1, S2, No murmur Abdomen/GI:Soft, Non tender, Bowel sounds present Extremities/Musculoskelatal:normal inspection, no edema Neurologic/Psych:AAOX3, grossly no focal neurological deficits Skin: normal color, warm Results & Data Results & Data ([facility]) Vital Signs (Past 12 Hours) Vital Signs Temp Pulse Resp BP Pulse Ox 10/25/20 11:24 92 10/25/20 07:00 36.8 C 88 19 136/89 97
--- NOTE | 2020-10-25 18:24 | Discharge Summary ---
Date of Service October 25, 2020 Admission HPI Per Admitting Provider This is a 59-year-old female with PMH of asthma and HLD who presents with shortness of breath over the past few days. Started to feel poorly about a week ago with headache and body aches, followed by nausea and diarrhea. Has been short of breath for the past 2 days with productive cough and pain in ribs when coughing. Denies any known Covid contacts. Takes inhalers as scheduled for history of asthma. Denies any fever, chills, lightheadedness, visual changes, chest pain, palpitations, vomiting, abdominal pain, dysuria or constipation. Has had poor appetite for the past few days. In ED, patient afebrile and hemodynamically stable. Became hypoxic in the high 80s and is now saturating at 90% on 2 L nasal cannula. Chest CTA with multifocal groundglass pulmonary opacities consistent with a multifocal pneumonia. No evidence of acute pulmonary embolism. Troponin mildly elevated at 0.064. EKG with sinus tachycardia @ 103 bpm. Admission Exam Per Admitting Provider Physical Exam Physical Exam: Please see Dr. Ann's addendum for physical exam. Constitutional: WD/WN, vitals as above + ill appearing and + obese Eyes: PERRL, conjunctivae normal, anicteric sclerae ENMT: external ear and nose normal, oropharynx normal Neck: trachea midline, no thyromegaly Respiratory: Auscultation: + diminished lung sounds, + crackles and + rales Cardiovascular: RRR, no murmur, no edema Gastrointestinal (Abdomen): normal bowel sounds, soft, nontender, no hepatosplenomegaly Musculoskeletal: no cyanosis or clubbing, extremities motor strength 5/5 Skin: no rashes, warm and dry Neurologic: PERRL, EOMI, accommodation nl, no face palsy, no dysarthria Psychiatric: A+Ox3, euthymic affect Principal Diagnosis COVID-19 pneumonia Hypoxia Anxiety disorder Tobacco use disorder Discharge Data Allergies Allergy/AdvReac Type Severity Reaction Status Date / Time hydrocodone [From Vicodin] AdvReac Intermediate Gastrointestinal Verified 10/22/20 12:29 Upset ibuprofen AdvReac Intermediate Gastrointestinal Verified 10/22/20 12:29 Upset tramadol AdvReac Intermediate Gastrointestinal Verified 10/22/20 12:29 Upset Consultations 10/22/20 15:24 ED Decision to Admit Stat 10/25/20 07:22 Consult Psychiatry Routine Procedures Performed CT chest: 1. No evidence of acute pulmonary embolism 2. Multifocal groundglass pulmonary opacities consistent with a multifocal pneumonia. 3. Hepatic steatosis. 4. Mild adenopathy likely reactive Ordered Studies 10/22/20 13:47 CT angio chest PE protocol Stat Hospital Course (1) Hypoxia: COVID-19 pneumonia: Continue supportive care, (2) Pneumonia due to COVID-19 virus: (3) Asthma: (4) Elevated troponin: (5) Tobacco use: (6) HLD (hyperlipidemia): (7) Anxiety: Severe anxiety/panic attack, worsening of symptoms secondary to hypoxia/acute illness. 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 DVT Px: SQ Lovenox Code status: FULL PCP: Dr Potts Total Time Total Time Spent Total Time Spent (In Minutes): 40 minutes Total Time Includes: Examination of the Patient, Discharge Planning, Medication Reconciliation, Communication With Other Providers and Other Discharge Plan Discharge Items Patient Disposition: Home - Self-Care Reason For Visit: COVID PNA,ELEVATED TROPONIN Discharge Diagnosis: Acute Hypoxemic Respiratory Failure COVID 19 pneumonia Anxiety disorder /Panic attack Activity: Resume your previous activity Exercise/Sports: Gradually increase as tolerated Non-emergency contact: Primary Care Provider Call non-emergency contact if: you have any medication questions Follow-up/Referrals: Kip Potts MD [Primary Care Provider] - Diet: Heart Healthy Addtl Attending Provider Instructions: Follow up with your Primary Care physician Dr. Potts on Oct 23, 2020 at 11:00 AM Seek immediate medical attention if your symptoms reoccur or worsen Home Isolation COVID-19 Instructions The following information about Home Isolation is from the CDC Website: https://www.cdc.gov/coronavirus/2019-ncov/hcp/zoycnjrp-ooyvzlg-dtrhjp.html Stay home except to get medical care People who are mildly ill with COVID-19 are able to isolate at home during their illness. You should restrict activities outside your home, except for getting medical care. Do not go to work, school, or public areas. Avoid using public transportation, ride-sharing, or taxis. Separate yourself from other people and animals in your home People: As much as possible, you should stay in a specific room and away from other people in your home. Also, you should use a separate bathroom, if available. Animals: You should restrict contact with pets and other animals while you are sick with COVID-19, just like you would around other people. Although there have not been reports of pets or other animals becoming sick with COVID-19, it is still recommended that people sick with COVID-19 limit contact with animals until more information is known about the virus. When possible, have another member of your household care for your animals while you are sick. If you are sick with COVID-19, avoid contact with your pet, including petting, snuggling, being kissed or licked, and sharing food. If you must care for your pet or be around animals while you are sick, wash your hands before and after you interact with pets and wear a face mask. Call ahead before visiting your doctor If you have a medical appointment, call the healthcare provider and tell them that you have or may have COVID-19. This will help the healthcare providers office take steps to keep other people from getting infected or exposed. Wear a face mask You should wear a face mask when you are around other people (e.g., sharing a room or vehicle) or pets and before you enter a healthcare providers office. If you are not able to wear a face mask (for example, because it causes trouble breathing), then people who live with you should not stay in the same room with you, or they should wear a face mask if they enter your room. Cover your coughs and sneezes Cover your mouth and nose with a tissue when you cough or sneeze. Throw used tissues in a lined trash can. Immediately wash your hands with soap and water for at least 20 seconds or, if soap and water are not available, clean your hands with an alcohol-based hand frame runner that contains at least 60% alcohol. Clean your hands often Wash your hands often with soap and water for at least 20 seconds, especially after blowing your nose, coughing, or sneezing; going to the bathroom; and before eating or preparing food. If soap and water are not readily available, use an alcohol-based hand frame runner with at least 60% alcohol, covering all surfaces of your hands and rubbing them together until they feel dry. Soap and water are the best option if hands are visibly dirty. Avoid touching your eyes, nose, and mouth with unwashed hands. Avoid sharing personal household items You should not share dishes, drinking glasses, cups, eating utensils, towels, or bedding with other people or pets in your home. After using these items, they should be washed thoroughly with soap and water. Clean all high-touch surfaces everyday High touch surfaces include counters, tabletops, doorknobs, bathroom fixtures, toilets, phones, keyboards, tablets, and bedside tables. Also, clean any surfaces that may have blood, stool, or body fluids on them. Use a household cleaning spray or wipe, according to the label instructions. Labels contain instructions for safe and effective use of the cleaning product including precautions you should take when applying the product, such as wearing gloves and making sure you have good ventilation during use of the product. Monitor your symptoms Seek prompt medical attention if your illness is worsening (e.g., difficulty breathing).Beforeseeking care, call your healthcare provider and tell them that you have, or are being evaluated for, COVID-19. Put on a face mask before you enter the facility. These steps will help the healthcare providers office to keep other people in the office or waiting room from getting infected or exposed. Ask your healthcare provider to call the local or state health department. Persons who are placed under active monitoring or facilitated self- monitoring should follow instructions provided by their local health department or occupational health professionals, as appropriate. When working with your local health department check their available hours. If you have a medical emergency and need to call 911, notify the dispatch personnel that you have, or are being evaluated for COVID-19. If possible, put on a face mask before emergency medical services arrive. Discontinuing home isolation Patients with confirmed COVID-19 should remain under home isolation precautions until the risk of secondary transmission to others is thought to be low. The decision to discontinue home isolation precautions should be made on a tndc-uj-yauy basis, in consultation with healthcare providers and [facility] and [facility] departments. Coronavirus disease 2019 (COVID-19) is a virus that causes a respiratory illness. It is caused by a coronavirus called 2019 novel coronavirus (2019- nCoV). There are many types of coronavirus. Coronaviruses are a very common cause of bronchitis. They may sometimes cause lung infection(pneumonia). Symptoms can range from mild to severe respiratory illness. These viruses are also foundin some animals. COVID-19 was first found in people in [facility], in late 2018. In 2020, several cases of COVID-19 have been confirmed in the [place] Public health officials are working to find the source. How the virus spreads is not yet fully known. It may be spread through droplets of fluid that a person coughs or sneezes into the air. It may be spread if you touch a surface with virus on it, such as a handle or object, and then touch your mouth. What are the symptoms of COVID-19? Some people have no symptoms or mild symptoms. Symptoms may appear 2 to 14 days after contact with the virus. Symptoms can include: Fever Coughing Trouble breathing What are possible complications from COVID-19? In many cases, this virus can cause infection (pneumonia) in both lungs. In some cases, this can cause . How is COVID-19 diagnosed? Your healthcare provider will ask about your symptoms. He or she will also ask about your recent travel and contact with sick people. Testing for the virus is only done through the CDC. If yourhealthcare provider thinks you may have COVID- 19, he or she will work with your local health department and the CDC on testing. Follow all instructions from your healthcare provider. COVID-19 is diagnosed by: Nasal and throat swab. A cotton-tipped swab is wiped inside your nose or throat. This is done to check for viruses in your nasal mucus. Sputum culture. A small sample of mucus coughed from your lungs (sputum) is collected if you have a cough. It is checked for the virus. How is COVID-19 treated? There is currently no medicine to treat the virus. Treatment is done to help your body while it fights the virus. This is known as supportive care. Supportive care may include: Pain medicine. These include acetaminophen and ibuprofen. They are used to help ease pain and reduce fever. Bed rest. This helps your body fight the illness. For severe illness, you may need to stay in the hospital. Care during severe illness may include: IV (intravenous) fluids.These are given through a vein to help keep your body hydrated. Oxygen. Supplemental oxygen or ventilation with a breathing machine (ventilator) may be given. This is done to keep enough oxygen in your body. Are you at risk for COVID-19? If youve been to a place where people have been sick with this virus, you are at risk for infection. You are at risk if you: Recently traveled to an affected area Had contact with a sick person who recently traveled to this area Had contact with a person who was diagnosed with COVID-19 How can COVID-19 be prevented? There is no vaccine yet. The best prevention is to not have contact with the virus. The CDC advises that people should not travel to areas where there are COVID-19 outbreaks right now for any reason that is not urgent. To help prevent spreading the infection, wash your hands often, or use an alcohol-basedhand frame runner. If you are in an area with COVID-19: Wash your hands often. Or use an alcohol-based hand frame runner often. Only touch your eyes, nose, or mouth with clean hands. Dont have contact with people who are sick. Follow local instructions about being in public. For example, you may be told to not use public transport for a period of time. Stay away from markets that have live or animals. Wash your hands after touching any animals. Don't touch animals that may be sick. Dont share eating or drinking tools with sick people. Dont kiss someone who is sick. Clean surfaces often with disinfectant. If you were in an area with COVID-19 in the last 14 days: Call your healthcare provider. He or she can talk with local health staff to see what action may be needed. Follow all instructions from your provider. Take your temperature every morning and evening for at least 14 days. This is to check for fever. Keep a record of the readings. Keep watch for symptoms of the virus. Tell your provider right away if you have symptoms. If you were in an area with COVID-19 and have a fever or other symptoms: Dont panic. Keep in mind that other illnesses can cause similar symptoms. Stay away from work, school, and public places. Limit physical contact with family members. Don't kiss anyone or share eating or drinking utensils. Clean surfaces you touch with disinfectant. This is to help prevent the virus from spreading. Call your healthcare provider. Explain that you have been exposed to COVID-19 and have symptoms. Do this before going to any hospital. Wait for instructions. Keep in mind that healthcare staff may wear protective equipment such as masks, gowns, gloves, and eye protection. You may be put in a separate room. This is to prevent the possible virus from spreading. Tell the healthcare staff about recent travel. This includes local travel on public transport. Staff may need to find other people you have been in contact with. Follow all instructions the healthcare staff give you. If you have been diagnosed with COVID-19 Follow all instructions from your healthcare provider. Dont leave your home, except to get medical care. Call your healthcare providers office before going. They can prepare and give you instructions. This will help prevent the virus from spreading. Dont go to work, school, or public areas. Dont use public transport or taxis. Stay away from other people in your home. Have them wear face masks around you. Dont share household items or food. Wear a face mask if you can. This includes at home or in a medical facility. Cover your face with a tissue when you cough or sneeze. Throw the tissue away. Wash your hands. Wash your hands often. Caregivers should: Follow all instructions from healthcare staff. Wear a face mask and protective clothing as advised. Wash hands often. Keep track of the sick persons symptoms. Clean surfaces, fabrics, and laundry thoroughly. Keep other people away from the sick person. When to call your healthcare provider Call your healthcare provider: If youve recently traveled and have symptoms If you have been diagnosed with COVID-19 and your symptoms are worse To learn more To find out more about COVID-19, visit the CDC website at www.cdc.gov/coronavirus/2019-ncov/index.html. 4341-[address] [employer] [place] [address], [place] [address]. All rights reserved. This information is not intended as a substitute for professional medical care. Always follow your healthcare professional's instructions. This information has been adapted from [employer] Pending Studies at Discharge: No Stand-Alone Forms: [facility], Smoking Cessation Medications and DC Order Prescriptions: Continued multivitamin Tablet 1 tab PO QAM RF: 0 fluticasone propion-salmeterol [Advair Diskus] 250-50 mcg/dose Blister With Device 1 inh INHALATION Q12H RF: 0 dexmethylphenidate [Focalin] 10 mg Tablet 10 mg PO QID RF: 0 ascorbic acid (vitamin C) [Vitamin C] 500 mg Tablet 500 mg PO QAM RF: 0 montelukast [Singulair] 10 mg Tablet 10 mg PO PM RF: 0 albuterol sulfate [ProAir HFA] 90 mcg/actuation Hfa Aerosol Inhaler 2 puff INHALATION Q6H PRN (Reason: Shortness Of Breath) RF: 0 cholecalciferol (vitamin D3) 2,000 unit Capsule 2,000 unit PO QAM RF: 0 zolpidem 10 mg tablet 10 mg PO HS PRN (Reason: Sleep) RF: 0 alprazolam 0.5 mg tablet 0.5 mg PO TID PRN (Reason: Anxiety) RF: 0 Incruse Ellipta 62.5 mcg/actuation blister with device 1 inh INHALATION QAM RF: 0 magnesium oxide 400 mg magnesium Tablet 400 mg PO QAM RF: 0 pantoprazole [Protonix] 40 mg Tablet,Delayed Release (Dr/Ec) 40 mg PO DAILY RF: 0 omega-3 fatty acids Capsule 1,000 mg PO DAILY RF: 0 Discharge Orders: Discharge Order (Routine); Ordered 10/25/20 Ordered By: Arturo Jane/Other Patient Handouts: Prediabetes, 5 Steps for Eating Healthier, A1C Admission Data Admit Date/Time: 10/22/20 15:34 Attending Provider: Arturo Park Admit Provider: Honey Ann Primary Care Provider: Kip Potts Other Providers: Honey Ann ; [place] ; Sonali Son Other Interventions: Discharge Summary Assessment (RN) Last Done: 10/25/20 14:22
== END 2020-10-25 14:40 | disposition home health service (06) | DRG 177 ==
LOC: ED 11:22 → 2S 15:34 → SUATTDRO 15:34 → 2S 16:10 → 3E 10-23 14:45